=== PATIENT | male | born 1940 | race Caucasian/White ===

== ENCOUNTER 2017-12-25 00:13 | Observation (INO) | payer MEDICARE ==
--- NOTE | 2017-12-25 01:42 | ERPHSYRPT ---
- History of Present Illness Time Seen by Provider: 12/25/17 01:21 Source: patient, other (spouse) Exam Limitations: physical impairment Patient Subjective Stated Complaint: pt c/o pain and swelling in lt leg. states swelling started yesterday and has gotten worse today. Triage Nursing Assessment: pt alert and oriented, asnwers questions approp. pt transfer from wheelchair to stretcher with heavy assist of 2. respirations nonlabored. nonpitting edema to lt foot +3, nonpitting edema to lt knee. Physician History: Pt is on Hospice care at home, started c/o pain and swelling in his left knee and leg since yesterday morning. denies recent fall, injury. He had similar condition in his right knee and leg few months ago, when he was admitted and treated here. He denies severe chest pain, SOB, cough, nausea, fever or other complaints. His called his doctor, stronger pain medication was called in, but it " did not work either". Method of Injury: other (denies) Occurred: yesterday Quality: constant Severity of Pain-Max: severe Severity of Pain-Current: severe Lower Extremities Pain: leg: left, knee: left Modifying Factors: Improves With: nothing Associated Symptoms: unable to bear weight Allergies/Adverse Reactions: rivaroxaban [From Xarelto] Allergy (Verified 12/25/17 00:51) Home Medications: Budesonide/Formoterol Fumarate [Symbicort 160-4.5 Mcg Inhaler] 2 puffs IH DAILY 03/23/16 [History] Carvedilol 3.125 mg [Coreg 3.125 MG] 0.5 tab PO DAILY 03/23/16 [History] Furosemide 40 mg [Lasix 40 MG] 40 mg PO DAILY 03/23/16 [History] Simvastatin 40 mg [Zocor 40 mg] 20 mg PO HS 03/23/16 [History] Warfarin Sodium 2.5 mg [Coumadin 2.5 MG] 2.5 mg PO UD 03/24/16 [History] Warfarin Sodium 5 mg [Coumadin 5 MG] 5 mg PO UD 03/24/16 [History] Sacubitril/Valsartan [Entresto 24 mg-26 mg Tablet] 1 each PO DAILY 12/25/17 [ History] Spironolactone [Spironolactone] 12.5 mg PO DAILY 12/25/17 [History] Tamsulosin HCl 0.4 mg [Flomax 0.4 MG] 0.4 mg PO DAILY 12/25/17 [History] Hx Tetanus, Diphtheria Vaccination/Date Given: Yes Hx Influenza Vaccination/Date Given: No Hx Pneumococcal Vaccination/Date Given: No Immunizations Up to Date: Yes - Review of Systems Constitutional: No Symptoms Musculoskeletal: Arthralgias, Joint Pain All Other Systems: Unable due to condition - Past Medical History Pertinent Past Medical History: Yes Neurological History: No Pertinent History ENT History: No Pertinent History Cardiac History: Hypertension Respiratory History: CHF Endocrine Medical History: No Pertinent History Musculoskeletal History: Arthritis GI Medical History: No Pertinent History History: No Pertinent History Psycho-Social History: No Pertinent History Male Reproductive Disorders: No Pertinent History - Past Surgical History Past Surgical History: Yes Neuro Surgical History: No Pertinent History Cardiac: Internal Defibrillator, Pacemaker Respiratory: No Pertinent History Gastrointestinal: No Pertinent History Genitourinary: No Pertinent History Musculoskeletal: Other Male Surgical History: No Pertinent History Other Surgical History: Pacemaker, Right Knee Replacement, Right Shoulder - Social History Smoking Status: Former smoker How long have you smoked: 40+ yrs Exposure to second hand smoke: No Alcohol Use: Socially Drug Use: none Patient Lives Alone: No Significant Family History: heart disease, hypertension - Nursing Vital Signs Nursing Vital Signs: Initial Vital Signs Temperature 97.5 F 12/25/17 00:43 Pulse Rate 70 12/25/17 00:43 Respiratory Rate 20 12/25/17 00:43 Blood Pressure 88/53 12/25/17 00:43 O2 Sat by Pulse Oximetry 96 12/25/17 00:43 Pain Scale Pain Intensity 10 - Physical Exam General Appearance: no apparent distress Eyes, Ears, Nose, Throat Exam: normal ENT inspection Neck Exam: normal inspection, non-tender, supple Cardiovascular/Respiratory Exam: chest non-tender, normal breath sounds, regular rate/rhythm, heart sounds normal, no JVD Gastrointestinal/Abdominal Exam: non-tender, soft Knees Exam: left knee: no evidence of injury, pain, soft tissue tenderness, swelling (diffuse, no redness, or warmth) Foot Exam: left foot: swelling (2 + foot edema) Mental Status Exam: alert Skin Exam: normal color, warm, dry, No rash SpO2 Interpretation: normal SpO2: 96 Oxygen Delivery: Room Air - Course Nursing assessment & vital signs reviewed: Yes EKG Interpreted by Me: RATE (70/min), Other (paced) - Radiology Exams Chest X-ray Interpretation: Interpreted by me, Negative, Other (cardiomegaly, pacemaker, no acute changes) Knee X-ray Interpretation: Interpreted by me, Other (severe DJD) Ordered Tests: Active Orders 24 hr Category Date Time Status Technology Professional STAT Care 12/25/17 01:28 Active EKG-ER Only STAT Care 12/25/17 01:27 Active IV Insertion STAT Care 12/25/17 01:27 Active CHEST 1 VIEW (PORTABLE) Stat Exams 12/25/17 01:28 Taken KNEE (3 VIEWS) Stat Exams 12/25/17 01:53 Taken CBC W DIFF Stat Lab 12/25/17 02:20 Completed CMP Stat Lab 12/25/17 02:20 Completed Lactic Acid Stat Lab 12/25/17 02:25 Results NT PRO BNP Stat Lab 12/25/17 02:20 Completed PROTIME WITH INR Stat Lab 12/25/17 02:20 Completed PTT Stat Lab 12/25/17 02:20 Completed SED RATE [Erythrocyte Sedimentation Rate] Stat Lab 12/25/17 02:20 Completed Uric Acid Stat Lab 12/25/17 02:20 Completed Medication Summary Discontinued Medications Generic Name Dose Route Start Last Admin Trade Name Freq PRN Reason Stop Dose Admin Oxycodone/Acetaminophen 1 tab 12/25/17 03:10 12/25/17 03:17 Percocet Tablet 5/325mg PO 12/25/17 03:11 1 tab STAT STA Administration Oxycodone/Acetaminophen Confirm 12/25/17 03:13 Percocet Tablet 5/325mg Administered 12/25/17 03:14 Dose 1 tab .ROUTE .STK-MED ONE Lab/Rad Data: Laboratory Result Diagrams 12/25/17 02:20 12/25/17 02:20 Laboratory Results 12/25/17 12/25/17 12/25/17 Range/Units 02:25 02:20 02:20 WBC (4.0-10.5) K/mm3 RBC (4.1-5.6) M/mm3 Hgb (12.5-18.0) gm/dl Hct (42-50) % MCV (78-100) fl MCH (26-32) pg MCHC (32-36) g/dl RDW (11.5-14.0) % Plt Count (150-450) K/mm3 MPV (6-9.5) fl Gran % (36.0-66.0) % Eos # (Auto) (0-0.5) Absolute Lymphs (auto) (1.0-4.6) Absolute Monos (auto) (0.0-1.3) Lymphocytes % (24.0-44.0) % Monocytes % (0.0-12.0) % Eosinophils % (0.00-5.0) % Basophils % (0.0-0.4) % Absolute Granulocytes (1.4-6.9) Basophils # (0-0.4) ESR 57 H (0-15) mm/hr PT (8.83-12.87) SECONDS INR (0.8-3.0) APTT (24.1-36.1) SECONDS Sodium (137-145) mmol/L Potassium (3.5-5.1) mmol/L Chloride (98-107) mmol/L Carbon Dioxide (22-30) mmol/L Anion Gap (5-15) MEQ/L BUN (9-20) mg/dL Creatinine (0.66-1.25) mg/dL Estimated GFR ML/MIN Glucose (74-106) mg/dL Lactic Acid 2.3 H (0.4-2.0) Uric Acid 10.6 H (3.5-7.2) mg/dL Calcium (8.4-10.2) mg/dL Total Bilirubin (0.2-1.3) mg/dL AST (17-59) U/L ALT (0-50) U/L Alkaline Phosphatase (38-126) U/L NT-Pro-B Natriuret Pep (0-1800) pg/mL Serum Total Protein (6.3-8.2) g/dL Albumin (3.5-5.0) g/dL 12/25/17 12/25/17 12/25/17 Range/Units 02:20 02:20 02:20 WBC 12.9 H (4.0-10.5) K/mm3 RBC 4.63 (4.1-5.6) M/mm3 Hgb 13.8 (12.5-18.0) gm/dl Hct 42.2 (42-50) % MCV 91.1 (78-100) fl MCH 29.8 (26-32) pg MCHC 32.7 (32-36) g/dl RDW 14.8 H (11.5-14.0) % Plt Count 232 (150-450) K/mm3 MPV 11.2 H (6-9.5) fl Gran % 81.9 H (36.0-66.0) % Eos # (Auto) 0 (0-0.5) Absolute Lymphs (auto) 0.63 L (1.0-4.6) Absolute Monos (auto) 1.68 H (0.0-1.3) Lymphocytes % 4.9 L (24.0-44.0) % Monocytes % 13.0 H (0.0-12.0) % Eosinophils % 0.0 (0.00-5.0) % Basophils % 0.2 (0.0-0.4) % Absolute Granulocytes 10.57 H (1.4-6.9) Basophils # 0.03 (0-0.4) ESR (0-15) mm/hr PT 31.5 H (8.83-12.87) SECONDS INR 2.68 (0.8-3.0) APTT 47.7 H (24.1-36.1) SECONDS Sodium 135 L (137-145) mmol/L Potassium 4.2 (3.5-5.1) mmol/L Chloride 96 L (98-107) mmol/L Carbon Dioxide 24 (22-30) mmol/L Anion Gap 19.9 H (5-15) MEQ/L BUN 33 H (9-20) mg/dL Creatinine 1.43 H (0.66-1.25) mg/dL Estimated GFR 51.0 ML/MIN Glucose 116 H (74-106) mg/dL Lactic Acid (0.4-2.0) Uric Acid (3.5-7.2) mg/dL Calcium 9.6 (8.4-10.2) mg/dL Total Bilirubin 3.00 H (0.2-1.3) mg/dL AST 17 (17-59) U/L ALT 14 (0-50) U/L Alkaline Phosphatase 95 (38-126) U/L NT-Pro-B Natriuret Pep 68292 H (0-1800) pg/mL Serum Total Protein 8.1 (6.3-8.2) g/dL Albumin 4.3 (3.5-5.0) g/dL - Progress Progress: improved Progress Note: 12/25/17 03:46 Improved after Percocet, still very painful after moving, unable to ambulate due to pain. 12/25/17 03:[address] Cardenas, discussed our results and patient's condition, he agreed to admit him for further care and evaluation for Rehab. 12/25/17 03:49 Pt and his were informed, they agreed. Discussed with .: Ronald Will see patient in: hospital (full admit) Counseled pt/family regarding: lab results, diagnosis, rad results - Departure Time of Disposition: 03:47 Departure Disposition: In-patient Admission Clinical Impression: Gout Qualifiers: Gout site: knee Gout etiology: unspecified cause Chronicity: acute Laterality: left Qualified Code(s): M10.9 - Gout, unspecified Edema Qualifiers: Edema type: unspecified Qualified Code(s): R60.9 - Edema, unspecified Condition: Stable Critical Care Time: No Referrals: JEOVANNY ORTIZ [Primary Care Provider] -
[2017-12-25 02:25] LABS: BASOPHIL % 0.2 % (0.0-0.4); Basophil (Absolute #) 0.03 (0-0.4); Eosinophil (Absolute #) 0 (0-0.5); Granulocyte Absolute (ANC) 10.57 (1.4-6.9); Granulocytes % 81.9 % (36.0-66.0); Hematocrit 42.2 % (42-50); Hemoglobin 13.8 gm/dl (12.5-18.0); Lymphocyte (Absolute #) 0.63 (1.0-4.6); Lymphocytes % 4.9 % (24.0-44.0); Mean Cell Volume 91.1 fl (78-100); Mean Corpuscular Hemoglobin 29.8 pg (26-32); Mean Corpuscular Hgb Concent. 32.7 g/dl (32-36); Mean Platelet Volume 11.2 fl (6-9.5); Monocyte (Absolute #) 1.68 (0.0-1.3); Platelet Count 232 K/mm3 (150-450); Red Blood Count 4.63 M/mm3 (4.1-5.6); Red Cell Distribution Width 14.8 % (11.5-14.0); White Blood Count 12.9 K/mm3 (4.0-10.5)
[2017-12-25 02:35] LABS: Lactic Acid 2.3 (0.4-2.0)
[2017-12-25 02:46] LABS: INR 2.68 (0.8-3.0)
[2017-12-25 02:48] LABS: ALBUMIN 4.3 g/dL (3.5-5.0); ANION GAP 19.9 MEQ/L (5-15); Calcium 9.6 mg/dL (8.4-10.2); Creatinine 1 1.43 mg/dL (0.66-1.25); Potassium 4.2 mmol/L (3.5-5.1); Total Protein 8.1 g/dL (6.3-8.2)
[2017-12-25 02:49] LABS: PTT 47.7 SECONDS (24.1-36.1)
[2017-12-25] MEDS ORDERED: PERCOCET TABLET 5/325MG PO STA (03:10)
[2017-12-25] MEDS ORDERED: PERCOCET TABLET 5/325MG ONE (03:13)
[2017-12-25] MEDS ORDERED: Zofran 4 MG/2 ML VIAL IV PRN (03:49)
[2017-12-25] MEDS ORDERED: DUONEB 0.5-3 MG/3 ml Neb IH PRN (03:49)
[2017-12-25] MEDS ORDERED: DILAUDID 2 MG INJECTION IV PRN (03:49)
[2017-12-25] MEDS ORDERED: PERCOCET TABLET 5/325MG PO PRN (03:52)
[2017-12-25 03:59] LABS: Slide Review 1 YES
[2017-12-25] MEDS ORDERED: Advair Hfa 230/21 Mcg COMMON CANISTER IH SCH (07:00)
[2017-12-25] MEDS ORDERED: Celestone Soluspan 6MG/ML IM ONE (08:48)
--- NOTE | 2017-12-25 08:53 | PCM.HP ---
History of Present Illness - Chief Complaint Chief Complaint: Leg Swelling, Gout, Fluid Retention History of Present Illness: is a 77 year old male who presented to the ER last night after he fell and his was unable to get him up. He is on hospice apparently for endstage chf, he has had severe lower leg pain and difficulty ambulating due to swelling. He reports his breathing is stable. - Review of Systems Constitutional: No Fever, No Chills Respiratory: No Cough, No Short Of Breath Cardiac: Edema, No Chest Pain, No Syncope Abdominal/Gastrointestinal: No Abdominal Pain, No Nausea, No Vomiting, No Diarrhea All Other Systems: Reviewed and Negative Medications & Allergies Home Medications: Home Medication List Budesonide/Formoterol Fumarate [Symbicort 160-4.5 Mcg Inhaler] 2 puffs IH DAILY 03/23/16 [History Confirmed 03/23/16] Carvedilol 3.125 mg [Coreg 3.125 MG] 0.5 tab PO DAILY 03/23/16 [History Confirmed 12/25/17] Furosemide 40 mg [Lasix 40 MG] 40 mg PO DAILY 03/23/16 [History Confirmed 12/25/17] Simvastatin 40 mg [Zocor 40 mg] 20 mg PO HS 03/23/16 [History Confirmed 12/25/17 ] Warfarin Sodium 2.5 mg [Coumadin 2.5 MG] 2.5 mg PO UD 03/24/16 [History Confirmed 12/25/17] Warfarin Sodium 5 mg [Coumadin 5 MG] 5 mg PO UD 03/24/16 [History Confirmed 12/25/17] Sacubitril/Valsartan [Entresto 24 mg-26 mg Tablet] 1 each PO DAILY 12/25/17 [ History Confirmed 12/25/17] Spironolactone [Spironolactone] 12.5 mg PO DAILY 12/25/17 [History Confirmed ] Tamsulosin HCl 0.4 mg [Flomax 0.4 MG] 0.4 mg PO DAILY 12/25/17 [History Confirmed 12/25/17] Allergies/Adverse Reactions: Allergies Allergy/AdvReac Type Severity Reaction Status Date / Time rivaroxaban [From Xarelto] Allergy Verified 12/25/17 00:51 - Past Medical History Past Medical History: Yes Neurological History: No Pertinent History ENT History: No Pertinent History Cardiac History: Hypertension Respiratory History: CHF Endocrine Medical History: No Pertinent History Musculoskelatal History: Arthritis GI Medical History: No Pertinent History History: No Pertinent History Pyscho-Social History: No Pertinent History Male Reproductive Disorders: No Pertinent History Comment: Rotator cuff currently injured - Past Surgical History Past Surgical History: Yes Neuro Surgical History: No Pertinent History Cardiac History: Internal Defibrillator, Pacemaker Respiratory Surgery: No Pertinent History GI Surgical History: No Pertinent History Genitourinary Surgical Hx: No Pertinent History Musculskeletal Surgical Hx: Other Male Surgical History: No Pertinent History Other Surgical History: Pacemaker, Right Knee Replacement, Right Shoulder - Social History Smoking Status: Former smoker How long have you smoked: 40+ yrs Exposure to second hand smoke: No Alcohol: None Drug Use: none Significant Family History: heart disease, hypertension - Physical Exam Vital Signs: Vital Signs - 24 hr Temp Pulse Resp BP Pulse Ox 12/25/17 08:00 98.6 F 70 18 96/51 97 12/25/17 05:36 70 18 95 12/25/17 04:53 97.9 F 70 18 92/56 93 L 12/25/17 04:05 87 16 97/56 97 12/25/17 03:49 96 12/25/17 03:40 71 12/25/17 02:38 70 18 95/57 97 12/25/17 00:43 97.5 F 70 20 88/53 96 Oxygen-Last 24 hours Oxygen Flowrate (L/min)-RT 2 General Appearance: no apparent distress, alert Respiratory Exam: crackles/rales Cardiovascular Exam: regular rate/rhythm, normal heart sounds, normal peripheral pulses Gastrointestinal/Abdomen Exam: soft, normal bowel sounds, No tenderness, No mass Extremity Exam: pedal edema, swelling Results - Labs Lab/Micro Results: Lab Results-Last 24 Hours 12/25/17 Range/Units 05:20 Lactic Acid 1.0 (0.4-2.0) - Other Procedures and Tests Respiratory Therapy 12/25/17 05:36 Oxygen NASAL CANNULA 2 lpm Respiratory Nebulizer UD 12/25/17 07:00 Respiratory MDI BID Assessment/Plan (1) Acute on chronic systolic CHF (congestive heart failure) Current Visit: Yes Status: Acute Assessment & Plan: IV lasix ordered, have contaced hospice group. may need to consider ECF placement Code(s): I50.23 - ACUTE ON CHRONIC SYSTOLIC (CONGESTIVE) HEART FAILURE (2) Gout Current Visit: Yes Status: Acute Qualifiers: Gout site: knee Gout etiology: unspecified cause Chronicity: acute Laterality: left Qualified Code(s): M10.9 - Gout, unspecified Assessment & Plan: IM celestone ordered x 1 Code(s): M10.9 - GOUT, UNSPECIFIED (3) Chronic a-fib Current Visit: No Status: Chronic Code(s): I48.2 - CHRONIC ATRIAL FIBRILLATION (4) Chronic hypoxemic respiratory failure Current Visit: No Status: Chronic (5) Type 2 diabetes mellitus Current Visit: No Status: Chronic
[2017-12-25] MEDS ORDERED: Lasix 40 MG/4 ML IV SCH (09:00)
--- NOTE | 2017-12-25 09:10 | XRAY ---
Indication: Pain and swelling. No known injury. Comparison: March 23, 2016. 3 views of the left knee again demonstrates advanced tricompartmental degenerative changes with surrounding heterotopic ossifications, small nonspecific suprapatellar effusion, and scattered vascular calcifications. No new/acute bony, articular, or soft tissue abnormalities.
--- NOTE | 2017-12-25 09:10 | XRAY ---
Indication: Short of breath and cough. Comparison: March 23, 2016. Portable chest remains clear. Heart remains enlarged again with left-sided AICD. Vascularity normal. 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 Bony thorax intact again with mild osteopenia and degenerative changes. Impression: Stable nonacute chest with chronic features.
[2017-12-25] MEDS ORDERED: Flomax 0.4 MG PO SCH (10:00)
[2017-12-25] MEDS ORDERED: NON-FORMULARY ITEM (Sacubitril/Valsartan [Entresto 24 Mg-26 Mg Tablet] 1 EACH) PO SCH (10:00)
[2017-12-25] MEDS ORDERED: ENTRESTO 49 MG-51 MG TABLET PO SCH (10:00)
[2017-12-25] MEDS ORDERED: Coreg 3.125 MG PO SCH (10:00)
[2017-12-25] MEDS ORDERED: Aldactone 25 MG PO SCH (10:00)
--- NOTE | 2017-12-25 13:53 | XRAY ---
Indication: Left arm left leg numbness. Multiple contiguous axial images obtained through the head without contrast. Comparison: None Age-appropriate global atrophy and mild periventricular degenerative micro-ischemia bilaterally. No acute intracranial hemorrhage, abnormal extra-axial fluid collection, or mass effect. Fourth ventricle is midline without hydrocephalus. Bony calvarium intact. Visualized paranasal sinuses and mastoid air cells are clear. Impression: Nonacute senile brain. CTDI 68.32
--- NOTE | 2017-12-25 16:23 | PCM.DCORD ---
- Discharge Disposition: DC TO [facility] Condition: Stable Prescriptions: New Oxycodone/APAP 5 mg/325 mg [Percocet Tablet 5/325Mg] 1 tab PO Q4H PRN PRN #120 tablet MDD 6 PRN Reason: Pain Continue Furosemide 40 mg [Lasix 40 MG] 40 mg PO DAILY Budesonide/Formoterol Fumarate [Symbicort 160-4.5 Mcg Inhaler] 2 puffs IH DAILY Carvedilol 3.125 mg [Coreg 3.125 MG] 0.5 tab PO DAILY Simvastatin 40 mg [Zocor 40 mg] 20 mg PO HS Warfarin Sodium 2.5 mg [Coumadin 2.5 MG] 2.5 mg PO UD Warfarin Sodium 5 mg [Coumadin 5 MG] 5 mg PO UD Tamsulosin HCl 0.4 mg [Flomax 0.4 MG] 0.4 mg PO DAILY Spironolactone 12.5 mg PO DAILY Sacubitril/Valsartan [Entresto 24 mg-26 mg Tablet] 1 each PO DAILY Additional Instructions: [facility] ORDERS: PT/OT EVAL AND TREAT SEE ATTACHED MED LIST FOR CURRENT MED ORDERS HEART HEALTHY DIET O2 AT 2L PRN TO KEEP SPO2 > 92% Forms: Transfer Record [facility]
[2017-12-25 16:33] VITALS: BP 88/52; PULSE 71; O2SAT 94
[2017-12-25] MEDS ORDERED: Coumadin 5 MG PO SCH (18:00)
[2017-12-26] MEDS ORDERED: Coumadin 2.5 MG PO SCH (18:00)
== END 2017-12-25 17:05 ==
LOC: ED 00:13 → MED SURG 04:25 → INTOOBSV 04:25 → OBSVTOIN 04:25
PROVIDERS: ADMIT Family Medicine; ATTEND Family Medicine
DX: I50.23 Acute on chronic systolic (congestive) heart failure (principal); M10.9 Gout, unspecified; I48.2 Chronic atrial fibrillation; J96.11 Chronic respiratory failure with hypoxia; E11.9 Type 2 diabetes mellitus without complications; I10 Essential (primary) hypertension; M19.90 Unspecified osteoarthritis, unspecified site; Z95.810 Presence of automatic (implantable) cardiac defibrillator; Z87.891 Personal history of nicotine dependence; Z79.01 Long term (current) use of anticoagulants; Z79.899 Other long term (current) drug therapy
CPT/HCPCS: 36000; 36415; 70450; 71045; 73562; 80053; 83605; 83880; 84550; 85025; 85610; 85652; 85730; 93005; 93041; 93268; 94640; 94760; 99284; 99285; J0702; J1940; A9270-GY; G0378

== ENCOUNTER 2018-02-11 19:39 | Observation (INO) | payer MEDICARE ==
[2018-02-11] MEDS ORDERED: Zofran 4 MG/2 ML VIAL IV ONE (20:03)
[2018-02-11] MEDS ORDERED: MORPHINE SULFATE 4 MG INJ IV ONE (20:03)
--- NOTE | 2018-02-11 20:10 | ERPHSYRPT ---
- History of Present Illness Time Seen by Provider: 02/11/18 20:00 Source: patient Exam Limitations: no limitations Patient Subjective Stated Complaint: Pt arrives to ER via EMS from home with c/ o right wrist/hand pain, swelling, erythema and hot to touch started yesterday. Denies injury. Also denies Reumatoid Arthritis. Was told may have hx of Gout but is unsure. Wrist is painful to touch. Pt was d/c [facility] on Thursday for left knee problems. Cough since September worse with "off white" sputum production. Triage Nursing Assessment: see above Physician History: 77 y/o male brought in by ambulance for right wrist swelling, pain, redness and warmth to touch that started today. Pt has a remote history of gout. Pt describes the pain as sharp, constant, 10/10 and not relieved by hydrocodone. Pt denies any fever or chills. Occurred: this morning Method of Injury: unknown Quality: constant Severity of Pain-Max: severe Severity of Pain-Current: severe Extremities Pain Location: wrist: right Modifying Factors: Improves With: movement Associated Symptoms: none Allergies/Adverse Reactions: rivaroxaban [From Xarelto] Allergy (Verified 02/11/18 19:53) Home Medications: Budesonide/Formoterol Fumarate [Symbicort 160-4.5 Mcg Inhaler] 2 puffs IH DAILY 03/23/16 [History] Carvedilol 3.125 mg [Coreg 3.125 MG] 0.5 tab PO DAILY 03/23/16 [History] Furosemide 40 mg [Lasix 40 MG] 40 mg PO DAILY 03/23/16 [History] Simvastatin 40 mg [Zocor 40 mg] 20 mg PO HS 03/23/16 [History] Warfarin Sodium 2.5 mg [Coumadin 2.5 MG] 2.5 mg PO UD 03/24/16 [History] Warfarin Sodium 5 mg [Coumadin 5 MG] 5 mg PO UD 03/24/16 [History] Sacubitril/Valsartan [Entresto 24 mg-26 mg Tablet] 1 each PO DAILY 12/25/17 [ History] Spironolactone 12.5 mg PO DAILY 12/25/17 [History] Tamsulosin HCl 0.4 mg [Flomax 0.4 MG] 0.4 mg PO DAILY 12/25/17 [History] Albuterol 2.5 mg/3 ml Neb [Proventil 2.5 mg/3 ml Neb] 2.5 mg IH 02/11/18 [ History] Hydrocodone Bit/Acetaminophen [Hydrocodon-Acetaminoph 7.5-325] 1 each PO Q4- 6HPRN PRN 02/11/18 [History] Hx Tetanus, Diphtheria Vaccination/Date Given: Yes Hx Influenza Vaccination/Date Given: No Hx Pneumococcal Vaccination/Date Given: No - Review of Systems Constitutional: No Fever, No Chills Eyes: No Symptoms Ears, Nose, & Throat: No Symptoms Respiratory: No Cough, No Dyspnea Cardiac: No Chest Pain, No Edema, No Syncope Abdominal/Gastrointestinal: No Abdominal Pain, No Nausea, No Vomiting, No Diarrhea Genitourinary Symptoms: No Dysuria Musculoskeletal: Arthralgias, Joint Redness, Joint Pain, Joint Swelling, No Back Pain, No Neck Pain Skin: No Rash Neurological: No Dizziness, No Focal Weakness, No Sensory Changes Psychological: No Symptoms Endocrine: No Symptoms All Other Systems: Reviewed and Negative - Past Medical History Pertinent Past Medical History: Yes Neurological History: No Pertinent History ENT History: No Pertinent History Cardiac History: Hypertension Respiratory History: CHF Endocrine Medical History: No Pertinent History Musculoskeletal History: Arthritis GI Medical History: No Pertinent History History: No Pertinent History Psycho-Social History: No Pertinent History Male Reproductive Disorders: No Pertinent History Other Medical History: Rotator cuff currently injured - Past Surgical History Past Surgical History: Yes Neuro Surgical History: No Pertinent History Cardiac: Internal Defibrillator, Pacemaker Respiratory: No Pertinent History Gastrointestinal: No Pertinent History Genitourinary: No Pertinent History Musculoskeletal: Other Male Surgical History: No Pertinent History Other Surgical History: Pacemaker, Right Knee Replacement, Right Shoulder - Social History Smoking Status: Former smoker How long have you smoked: 40+ yrs Exposure to second hand smoke: Yes Alcohol Use: Socially Drug Use: none Patient Lives Alone: No Significant Family History: heart disease, hypertension - Nursing Vital Signs Nursing Vital Signs: Initial Vital Signs Temperature 98.8 F 02/11/18 19:42 Pulse Rate 76 02/11/18 19:42 Respiratory Rate 22 02/11/18 19:42 Blood Pressure 93/59 02/11/18 19:42 O2 Sat by Pulse Oximetry 98 02/11/18 19:42 Pain Scale Pain Intensity 10 - Physical Exam General Appearance: mild distress, alert Eyes, Ears, Nose, Throat Exam: moist mucous membranes Neck Exam: non-tender, supple Cardiovascular/Respiratory Exam: chest non-tender, normal breath sounds, regular rate/rhythm, no respiratory distress Abdominal Exam: non-tender, No guarding Back Exam: normal inspection, No vertebral tenderness Elbow/Forearm Exam: normal inspection, non-tender, no evidence of injury Wrist Exam: bone tenderness, ecchymosis, limited ROM, soft tissue tenderness, swelling Hand Exam: normal inspection, non-tender, no evidence of injury Neuro/Tendon Exam: normal sensation, normal motor functions Mental Status Exam: alert, oriented x 3, cooperative Skin Exam: normal color, warm, dry SpO2: 98 Oxygen Delivery: Room Air - Course Nursing assessment & vital signs reviewed: Yes Ordered Tests: Active Orders 24 hr Category Date Time Status CHEST 1 VIEW (PORTABLE) Stat Exams 02/11/18 20:30 Taken WRIST (MIN 3 VIEWS) Stat Exams 02/11/18 20:28 Taken BLOOD CULTURE Stat Lab 02/11/18 21:00 Received CBC W DIFF Stat Lab 02/11/18 21:00 Completed CK-Creatinine Phosphokinase Stat Lab 02/11/18 21:00 Completed CMP Stat Lab 02/11/18 21:00 Completed CULTURE,SPUTUM Stat Lab 02/11/18 20:02 Uncollected Erythrocyte Sedimentation Rate Stat Lab 02/11/18 21:00 Completed NT PRO BNP Stat Lab 02/11/18 21:00 Completed PROTIME WITH INR Stat Lab 02/11/18 21:00 Completed PTT Stat Lab 02/11/18 21:00 Completed Uric Acid Stat Lab 02/11/18 21:00 Completed Medication Summary Discontinued Medications Generic Name Dose Route Start Last Admin Trade Name Freq PRN Reason Stop Dose Admin Clindamycin HCl/Dextrose 600 mg in 50 mls @ 100 mls/hr 02/11/18 21:59 22:16 Clindamycin-D5w 600 Mg/50 Ml IV 02/11/18 22:28 100 mls/hr STAT STA 100 mls/hr Administration Sodium Chloride 500 mls @ 500 mls/hr 02/11/18 22:00 02/11/18 22:17 Sodium Chloride 0.9% 500 Ml IV 02/11/18 22:59 500 mls/hr .Q1H ONE Administration Sodium Chloride Confirm 02/11/18 22:08 Sodium Chloride 0.9% 500 Ml Administered 02/11/18 22:09 Dose 500 mls @ ud IV .STK-MED ONE Clindamycin HCl/Dextrose Confirm 02/11/18 22:08 Clindamycin-D5w 600 Mg/50 Ml Administered 02/11/18 22:09 Dose 600 mg in 50 mls @ ud IV .STK-MED ONE Morphine Sulfate 4 mg 02/11/18 20:03 02/11/18 20:57 Morphine Sulfate 4 Mg Inj IV 02/11/18 20:04 4 mg STAT ONE Administration Morphine Sulfate Confirm 02/11/18 20:53 Morphine Sulfate 4 Mg Inj Administered 02/11/18 20:54 Dose 4 mg .ROUTE .STK-MED ONE Ondansetron HCl 4 mg 02/11/18 20:03 02/11/18 20:57 Zofran 4 Mg/2 Ml Vial IV 02/11/18 20:04 4 mg STAT ONE Administration Ondansetron HCl Confirm 02/11/18 20:53 Zofran 4 Mg/2 Ml Vial Administered 02/11/18 20:54 Dose 4 mg .ROUTE .STK-MED ONE Lab/Rad Data: Laboratory Result Diagrams 02/11/18 21:00 02/11/18 21:00 Laboratory Results 02/11/18 02/11/18 02/11/18 Range/Units 21:00 21:00 21:00 WBC 11.7 H (4.0-10.5) K/mm3 RBC 3.79 L (4.1-5.6) M/mm3 Hgb 11.3 L (12.5-18.0) gm/dl Hct 35.0 L (42-50) % MCV 92.3 (78-100) fl MCH 29.8 (26-32) pg MCHC 32.3 (32-36) g/dl RDW 15.8 H (11.5-14.0) % Plt Count 256 (150-450) K/mm3 MPV 10.9 H (6-9.5) fl Gran % 78.6 H (36.0-66.0) % Eos # (Auto) 0.01 (0-0.5) Absolute Lymphs (auto) 1.13 (1.0-4.6) Absolute Monos (auto) 1.35 H (0.0-1.3) Lymphocytes % 9.6 L (24.0-44.0) % Monocytes % 11.5 (0.0-12.0) % Eosinophils % 0.1 (0.00-5.0) % Basophils % 0.2 (0.0-0.4) % Absolute Granulocytes 9.22 H (1.4-6.9) Basophils # 0.02 (0-0.4) ESR 79 H (0-15) mm/hr PT 28.7 H (8.83-12.87) SECONDS INR 2.45 (0.8-3.0) APTT 42.6 H (24.1-36.1) SECONDS Sodium 136 L (137-145) mmol/L Potassium 3.7 (3.5-5.1) mmol/L Chloride 99 (98-107) mmol/L Carbon Dioxide 27 (22-30) mmol/L Anion Gap 13.6 (5-15) MEQ/L BUN 31 H (9-20) mg/dL Creatinine 1.33 H (0.66-1.25) mg/dL Estimated GFR 55.4 ML/MIN Glucose 110 H (74-106) mg/dL Uric Acid 8.1 H (3.5-7.2) mg/dL Calcium 9.2 (8.4-10.2) mg/dL Total Bilirubin 2.30 H (0.2-1.3) mg/dL AST 12 L (17-59) U/L ALT 12 (0-50) U/L Alkaline Phosphatase 87 (38-126) U/L Creatine Kinase 99 (55-170) U/L NT-Pro-B Natriuret Pep 89696 H (0-1800) pg/mL Serum Total Protein 7.3 (6.3-8.2) g/dL Albumin 4.0 (3.5-5.0) g/dL - Progress Progress: improved Progress Note: 02/11/18 22:34 Repeat BP is 96/60 after 500 NS fluids. Pt has a mild leukocytosis at 11,000. The x ray of the wrist does not show any acute findings. The patient will be sent home on clindamycin and percocet for cellulitis. 02/11/18 23:11 After further evaluation, patient is unable to walk and can only stand with assistance. Pt has been admitted to Dr Herrera for cellulitis and weakness. - Departure Time of Disposition: 22:36 Departure Disposition: In-patient Admission Clinical Impression: Weakness Cellulitis Qualifiers: Site of cellulitis: extremity Site of cellulitis of extremity: upper extremity Laterality: right Qualified Code(s): L03.113 - Cellulitis of right upper limb Condition: Fair Critical Care Time: Yes Critical Care Time(excluding separately billable procedures): 30-74 minutes Referrals: JEOVANNY ORTIZ [Primary Care Provider] - Prescriptions: Clindamycin HCl 300 mg PO TID #30 capsule Oxycodone HCl/Acetaminophen [Percocet 5-325 mg Tablet] 1 each PO QID PRN #16 tablet MDD 4 PRN Reason: Pain
[2018-02-11] MEDS ORDERED: Zofran 4 MG/2 ML VIAL ONE (20:53)
[2018-02-11] MEDS ORDERED: MORPHINE SULFATE 4 MG INJ ONE (20:53)
[2018-02-11 21:15] LABS: BASOPHIL % 0.2 % (0.0-0.4); Basophil (Absolute #) 0.02 (0-0.4); Eosinophil % 0.1 % (0.00-5.0); Eosinophil (Absolute #) 0.01 (0-0.5); Granulocyte Absolute (ANC) 9.22 (1.4-6.9); Granulocytes % 78.6 % (36.0-66.0); Hemoglobin 11.3 gm/dl (12.5-18.0); Lymphocyte (Absolute #) 1.13 (1.0-4.6); Lymphocytes % 9.6 % (24.0-44.0); Mean Cell Volume 92.3 fl (78-100); Mean Corpuscular Hemoglobin 29.8 pg (26-32); Mean Corpuscular Hgb Concent. 32.3 g/dl (32-36); Mean Platelet Volume 10.9 fl (6-9.5); Monocyte (Absolute #) 1.35 (0.0-1.3); Monocytes % 11.5 % (0.0-12.0); Platelet Count 256 K/mm3 (150-450); Red Blood Count 3.79 M/mm3 (4.1-5.6); Red Cell Distribution Width 15.8 % (11.5-14.0); White Blood Count 11.7 K/mm3 (4.0-10.5)
[2018-02-11 21:35] LABS: ANION GAP 13.6 MEQ/L (5-15); BILIRUBIN,TOTAL 2.3 mg/dL (0.2-1.3); Calcium 9.2 mg/dL (8.4-10.2); Creatinine 1 1.33 mg/dL (0.66-1.25); Potassium 3.7 mmol/L (3.5-5.1); Total Protein 7.3 g/dL (6.3-8.2); Uric Acid 8.1 mg/dL (3.5-7.2)
[2018-02-11 21:36] LABS: Erythrocyte Sedimentation Rate 79 mm/hr (0-15)
[2018-02-11 21:40] LABS: INR 2.45 (0.8-3.0)
[2018-02-11 21:43] LABS: PTT 42.6 SECONDS (24.1-36.1)
[2018-02-11] MEDS ORDERED: CLINDAMYCIN-D5W 600 MG/50 ML*** 600 MG/50 ML BAG IV STA (21:59)
[2018-02-11] MEDS ORDERED: Sodium Chloride 0.9% 500 ML 500 ML IV ONE ×2 (22:00→22:08)
[2018-02-11] MEDS ORDERED: CLINDAMYCIN-D5W 600 MG/50 ML*** 600 MG/50 ML BAG IV ONE (22:08)
[2018-02-11] MEDS ORDERED: MORPHINE SULFATE 4 MG INJ IV PRN (23:15)
[2018-02-11] MEDS ORDERED: Sodium Chloride 0.9% 1000 ML 1,000 ML IV SCH (23:15)
[2018-02-11] MEDS ORDERED: Zofran 4 MG/2 ML VIAL IV PRN (23:15)
[2018-02-12] MEDS ORDERED: PROVENTIL 2.5 MG/3 ML NEB IH PRN (03:29)
[2018-02-12] MEDS: CLINDAMYCIN-D5W 600 MG/50 ML*** 600 MG/50 ML BAG IV SCH ×3 (05:31→23:24)
[2018-02-12 06:20] LABS: BASOPHIL % 0.2 % (0.0-0.4); Basophil (Absolute #) 0.02 (0-0.4); Eosinophil % 0.1 % (0.00-5.0); Eosinophil (Absolute #) 0.01 (0-0.5); Granulocyte Absolute (ANC) 6.43 (1.4-6.9); Granulocytes % 75.7 % (36.0-66.0); Hematocrit 33.3 % (42-50); Hemoglobin 10.5 gm/dl (12.5-18.0); Lymphocyte (Absolute #) 1.07 (1.0-4.6); Lymphocytes % 12.6 % (24.0-44.0); Mean Cell Volume 93.5 fl (78-100); Mean Corpuscular Hgb Concent. 31.5 g/dl (32-36); Mean Platelet Volume 11.1 fl (6-9.5); Monocyte (Absolute #) 0.97 (0.0-1.3); Monocytes % 11.4 % (0.0-12.0); Platelet Count 247 K/mm3 (150-450); Red Blood Count 3.56 M/mm3 (4.1-5.6); Red Cell Distribution Width 15.8 % (11.5-14.0); White Blood Count 8.5 K/mm3 (4.0-10.5)
[2018-02-12 06:27] LABS: ANION GAP 11.1 MEQ/L (5-15); BLOOD UREA NITROGEN 31 mg/dL (9-20); CHLORIDE 101 mmol/L (98-107); Calcium 8.7 mg/dL (8.4-10.2); Carbon Dioxide 27 mmol/L (22-30); Creatinine 1 1.24 mg/dL (0.66-1.25); Glucose 101 mg/dL (74-106); Potassium 3.9 mmol/L (3.5-5.1); SODIUM 135 mmol/L (137-145)
[2018-02-12 06:32] LABS: Mean Corpuscular Hemoglobin 29.4 pg (26-32)
--- NOTE | 2018-02-12 08:07 | PCM.HP ---
History of Present Illness - Chief Complaint Chief Complaint: cellulitis, weakness Date: 02/12/18 History of Present Illness: is a 77 year old male. who was released from [facility] about 1 and 1/2 weeks ago who says he was doing great when he got home but 3 days ago started having pain in his right leg and couldn't walk and had to have a neighbor help him get to bed. He then 2 days ago states his right hand became very painful and "bubbled up" and was swollen red and he couldn't touch it use it or move it. He couldn't take the pain last night so he called the ambulance. He also states he had been coughing up white phlegm persistently with wheezing and shortness of breath but this has resolved today. He denied any fever, chills, nausea or vomiting or diarrhea. He says he was taking his medications but he does not know what medications he takes. He says he is so weak he just can't do it. He states the swelling is better in the hand this morning and the pain is improved but still severe. - Review of Systems Constitutional: No Fever, No Chills Eyes: No Symptoms Ears, Nose, & Throat: No Symptoms Respiratory: Cough, Short Of Breath, Wheezing Cardiac: No Chest Pain, No Edema, No Syncope Abdominal/Gastrointestinal: No Abdominal Pain, No Nausea, No Vomiting, No Diarrhea Genitourinary Symptoms: No Dysuria Musculoskeletal: No Back Pain, No Neck Pain Neurological: Gait Changes, No Dizziness, No Focal Weakness, No Sensory Changes Psychological: No Symptoms Endocrine: No Symptoms Hematologic/Lymphatic: No Symptoms Immunological/Allergic: No Symptoms Medications & Allergies Home Medications: Home Medication List Budesonide/Formoterol Fumarate [Symbicort 160-4.5 Mcg Inhaler] 2 puffs IH DAILY 03/23/16 [History Confirmed 03/23/16] Carvedilol 3.125 mg [Coreg 3.125 MG] 0.5 tab PO DAILY 03/23/16 [History Confirmed 12/25/17] Furosemide 40 mg [Lasix 40 MG] 40 mg PO DAILY 03/23/16 [History Confirmed 12/25/17] Simvastatin 40 mg [Zocor 40 mg] 20 mg PO HS 03/23/16 [History Confirmed 12/25/17 ] Warfarin Sodium 2.5 mg [Coumadin 2.5 MG] 2.5 mg PO UD 03/24/16 [History Confirmed 12/25/17] Warfarin Sodium 5 mg [Coumadin 5 MG] 5 mg PO UD 03/24/16 [History Confirmed 12/25/17] Sacubitril/Valsartan [Entresto 24 mg-26 mg Tablet] 1 each PO DAILY 12/25/17 [ History Confirmed 12/25/17] Spironolactone 12.5 mg PO DAILY 12/25/17 [History Confirmed 12/25/17] Tamsulosin HCl 0.4 mg [Flomax 0.4 MG] 0.4 mg PO DAILY 12/25/17 [History Confirmed 12/25/17] Albuterol 2.5 mg/3 ml Neb [Proventil 2.5 mg/3 ml Neb] 2.5 mg IH 02/11/18 [ History] Clindamycin HCl 300 mg PO TID #30 capsule 02/11/18 [Rx] Hydrocodone Bit/Acetaminophen [Hydrocodon-Acetaminoph 7.5-325] 1 each PO Q4- 6HPRN PRN 02/11/18 [History Confirmed 02/11/18] Oxycodone HCl/Acetaminophen [Percocet 5-325 mg Tablet] 1 each PO QID PRN #16 tablet MDD 4 02/11/18 [Rx] Allergies/Adverse Reactions: Allergies Allergy/AdvReac Type Severity Reaction Status Date / Time rivaroxaban [From Xarelto] Allergy Verified 02/11/18 19:53 - Past Medical History Past Medical History: Yes Neurological History: No Pertinent History ENT History: No Pertinent History Cardiac History: Hypertension Respiratory History: CHF Endocrine Medical History: No Pertinent History Musculoskelatal History: Arthritis GI Medical History: No Pertinent History History: No Pertinent History Pyscho-Social History: No Pertinent History Male Reproductive Disorders: No Pertinent History Comment: Rotator cuff currently injured - Past Surgical History Past Surgical History: Yes Neuro Surgical History: No Pertinent History Cardiac History: Internal Defibrillator, Pacemaker Respiratory Surgery: No Pertinent History GI Surgical History: No Pertinent History Genitourinary Surgical Hx: No Pertinent History Musculskeletal Surgical Hx: Other Male Surgical History: No Pertinent History Other Surgical History: Pacemaker, Right Knee Replacement, Right Shoulder - Social History Smoking Status: Former smoker How long have you smoked: 40+ yrs Exposure to second hand smoke: Yes Alcohol: None Drug Use: none Significant Family History: heart disease, hypertension - Physical Exam Vital Signs: Vital Signs - 24 hr Temp Pulse Resp BP Pulse Ox 02/12/18 07:38 97.4 F 70 22 94/59 96 02/12/18 04:00 98.5 F 69 18 101/58 98 02/12/18 00:57 98.6 F 69 18 90/54 97 02/11/18 23:52 72 18 100/65 100 02/11/18 23:30 71 18 94/62 99 02/11/18 23:12 98 02/11/18 22:58 70 18 89/58 18 L 02/11/18 22:30 70 18 89/62 98 02/11/18 22:00 70 18 96/62 98 02/11/18 21:30 70 18 87/57 99 02/11/18 21:13 70 18 91/89 98 02/11/18 21:00 71 18 89/56 99 02/11/18 19:42 98.8 F 76 22 93/59 98 Oxygen-Last 24 hours O2 Percentage 2 Liters = 28% O2 Percentage 2 Liters = 28% O2 Percentage 2 Liters = 28% O2 Percentage 2 Liters = 28% O2 Percentage 2 Liters = 28% O2 Percentage 2 Liters = 28% O2 Percentage 2 Liters = 28% O2 Percentage 2 Liters = 28% O2 Percentage 2 Liters = 28% O2 Percentage 2 Liters = 28% O2 Percentage 2 Liters = 28% General Appearance: no apparent distress, alert, obese Neurologic Exam: alert, oriented x 3, cooperative, sensation nml, No motor deficits Eye Exam: PERRL/EOMI, eyes nml inspection, No scleral icterus, No pale conjunctivae Ears, Nose, Throat Exam: normal ENT inspection, pharynx normal, moist mucous membranes Neck Exam: normal inspection, non-tender, supple, full range of motion Respiratory Exam: normal breath sounds, lungs clear, No respiratory distress Cardiovascular Exam: regular rate/rhythm, normal heart sounds, normal peripheral pulses Gastrointestinal/Abdomen Exam: soft, normal bowel sounds, No tenderness, No mass Back Exam: normal inspection, No vertebral tenderness Extremity Exam: swelling (2+ donya LE edema right hand with trace edema minimal warmth and minimal redness) Skin Exam: warm, dry, other (minimal warmth and redness right hand), No rash Lymphatic Exam: No adenopathy Results - Labs Lab/Micro Results: Lab Results-Last 24 Hours 02/11/18 02/11/18 02/11/18 Range/Units 21:00 21:00 21:00 WBC 11.7 H (4.0-10.5) K/mm3 RBC 3.79 L (4.1-5.6) M/mm3 Hgb 11.3 L (12.5-18.0) gm/dl Hct 35.0 L (42-50) % MCV 92.3 (78-100) fl MCH 29.8 (26-32) pg MCHC 32.3 (32-36) g/dl RDW 15.8 H (11.5-14.0) % Plt Count 256 (150-450) K/mm3 MPV 10.9 H (6-9.5) fl Gran % 78.6 H (36.0-66.0) % Eos # (Auto) 0.01 (0-0.5) Absolute Lymphs (auto) 1.13 (1.0-4.6) Absolute Monos (auto) 1.35 H (0.0-1.3) Lymphocytes % 9.6 L (24.0-44.0) % Monocytes % 11.5 (0.0-12.0) % Eosinophils % 0.1 (0.00-5.0) % Basophils % 0.2 (0.0-0.4) % Absolute Granulocytes 9.22 H (1.4-6.9) Basophils # 0.02 (0-0.4) ESR 79 H (0-15) mm/hr PT 28.7 H (8.83-12.87) SECONDS INR 2.45 (0.8-3.0) APTT 42.6 H (24.1-36.1) SECONDS Sodium 136 L (137-145) mmol/L Potassium 3.7 (3.5-5.1) mmol/L Chloride 99 (98-107) mmol/L Carbon Dioxide 27 (22-30) mmol/L Anion Gap 13.6 (5-15) MEQ/L BUN 31 H (9-20) mg/dL Creatinine 1.33 H (0.66-1.25) mg/dL Estimated GFR 55.4 ML/MIN Glucose 110 H (74-106) mg/dL Uric Acid 8.1 H (3.5-7.2) mg/dL Calcium 9.2 (8.4-10.2) mg/dL Total Bilirubin 2.30 H (0.2-1.3) mg/dL AST 12 L (17-59) U/L ALT 12 (0-50) U/L Alkaline Phosphatase 87 (38-126) U/L Creatine Kinase 99 (55-170) U/L NT-Pro-B Natriuret Pep 64224 H (0-1800) pg/mL Serum Total Protein 7.3 (6.3-8.2) g/dL Albumin 4.0 (3.5-5.0) g/dL 02/12/18 02/12/18 Range/Units 05:40 05:40 WBC 8.5 (4.0-10.5) K/mm3 RBC 3.56 L (4.1-5.6) M/mm3 Hgb 10.5 L (12.5-18.0) gm/dl Hct 33.3 L (42-50) % MCV 93.5 (78-100) fl MCH 29.4 (26-32) pg MCHC 31.5 L (32-36) g/dl RDW 15.8 H (11.5-14.0) % Plt Count 247 (150-450) K/mm3 MPV 11.1 H (6-9.5) fl Gran % 75.7 H (36.0-66.0) % Eos # (Auto) 0.01 (0-0.5) Absolute Lymphs (auto) 1.07 (1.0-4.6) Absolute Monos (auto) 0.97 (0.0-1.3) Lymphocytes % 12.6 L (24.0-44.0) % Monocytes % 11.4 (0.0-12.0) % Eosinophils % 0.1 (0.00-5.0) % Basophils % 0.2 (0.0-0.4) % Absolute Granulocytes 6.43 (1.4-6.9) Basophils # 0.02 (0-0.4) ESR (0-15) mm/hr PT (8.83-12.87) SECONDS INR (0.8-3.0) APTT (24.1-36.1) SECONDS Sodium 135 L (137-145) mmol/L Potassium 3.9 (3.5-5.1) mmol/L Chloride 101 (98-107) mmol/L Carbon Dioxide 27 (22-30) mmol/L Anion Gap 11.1 (5-15) MEQ/L BUN 31 H (9-20) mg/dL Creatinine 1.24 (0.66-1.25) mg/dL Estimated GFR > 60.0 ML/MIN Glucose 101 (74-106) mg/dL Uric Acid (3.5-7.2) mg/dL Calcium 8.7 (8.4-10.2) mg/dL Total Bilirubin (0.2-1.3) mg/dL AST (17-59) U/L ALT (0-50) U/L Alkaline Phosphatase (38-126) U/L Creatine Kinase (55-170) U/L NT-Pro-B Natriuret Pep (0-1800) pg/mL Serum Total Protein (6.3-8.2) g/dL Albumin (3.5-5.0) g/dL - Radiology Impressions Radiology Exams & Impressions: Radiology Procedures Category Date Time Status CHEST 1 VIEW (PORTABLE) Stat Exams 02/11/18 20:30 Taken WRIST (MIN 3 VIEWS) Stat Exams 02/11/18 20:28 Taken - Other Procedures and Tests Respiratory Therapy 02/12/18 03:28 Oxygen NASAL CANNULA 2 lpm 02/12/18 03:31 neb [Respiratory Nebulizer] PRN 02/12/18 07:00 Respiratory MDI BID Assessment/Plan (1) Cellulitis Current Visit: Yes Status: Acute Qualifiers: Site of cellulitis: extremity Site of cellulitis of extremity: upper extremity Laterality: right Qualified Code(s): L03.113 - Cellulitis of right upper limb Assessment & Plan: apparently improved well overnight with the clinda today minimal swelling and redness and warmth but severe pain still will continue the clinda add prednisone with his hx of gout as well as elevated esr as well his location of the redness and swelling does not seem to be consistent with any infection in the wrist joint or tenosynovitis at this time however his extreme pain and elevated esr call concern for this with rapid improvement will continue to encourage elevation, ice and antibiotic he is a very poor surgical candidate should he need a debridement given his severely reduced EF and ckd he is also extremely sensitive to pain in his lower extremities making it difficult to differentiate the pain associated with the acute abnormality in the right hand Code(s): L03.90 - CELLULITIS, UNSPECIFIED (2) Impaired gait Current Visit: Yes Status: Acute Code(s): R26.9 - UNSPECIFIED ABNORMALITIES OF GAIT AND MOBILITY (3) Chronic systolic (congestive) heart failure Current Visit: Yes Status: Chronic Assessment & Plan: severely reduced EF stop fluids monitor fluid intake restart home meds Code(s): I50.22 - CHRONIC SYSTOLIC (CONGESTIVE) HEART FAILURE (4) Gout Current Visit: Yes Status: Chronic Qualifiers: Gout etiology: unspecified cause Qualified Code(s): M10.9 - Gout, unspecified Code(s): M10.9 - GOUT, UNSPECIFIED (5) Chronic a-fib Current Visit: Yes Status: Chronic Assessment & Plan: continue warfarin monitor inr on clinda Code(s): I48.2 - CHRONIC ATRIAL FIBRILLATION (6) Chronic hypoxemic respiratory failure Current Visit: Yes Status: Chronic (7) Type 2 diabetes mellitus Current Visit: Yes Status: Chronic (8) CKD (chronic kidney disease) Current Visit: Yes Status: Chronic Qualifiers: Chronic kidney disease stage: stage 3 (moderate) Qualified Code(s): N18.3 - Chronic kidney disease, stage 3 (moderate) Code(s): N18.9 - CHRONIC KIDNEY DISEASE, UNSPECIFIED
[2018-02-12] MEDS: Advair Hfa 230/21 Mcg COMMON CANISTER IH SCH ×2 (08:45→19:48)
--- NOTE | 2018-02-12 09:07 | XRAY ---
Indication: Pain. Limited range of motion. No known injury. Comparison: None 3 views of the right wrist demonstrates advanced radiocarpal degenerative changes as evidenced by joint space loss, sclerosis, spurring, and tiny subcortical cysts. Also ulnar carpal degenerative chondrocalcinosis and mild ulnar negative deviation. There is widening of the scapholunate articulation favoring underlying ligamentous tear. No other bony, articular, or soft tissue abnormalities.
--- NOTE | 2018-02-12 09:11 | XRAY ---
Indication: Cough. Comparison: December 25, 2017. Portable apical lordotic chest unchanged again demonstrating borderline cardiomegaly with left-sided AICD and focal eventration of the right hemidiaphragm. Remaining heart and lungs unremarkable.
[2018-02-12] MEDS: Coreg 3.125 MG PO SCH ×3 (09:29→22:44)
[2018-02-12] MEDS: DELTASONE 20 MG PO SCH (09:29)
[2018-02-12] MEDS: NORCO 7.5/325 MG TAB PO PRN (09:35)
[2018-02-12] MEDS: Lasix 40 MG PO SCH (09:36)
[2018-02-12] MEDS ORDERED: NON-FORMULARY ITEM (Sacubitril/Valsartan [Entresto 24 Mg-26 Mg Tablet] 1 EACH) PO SCH (10:00)
[2018-02-12] MEDS: ENTRESTO 49 MG-51 MG TABLET PO SCH ×3 (10:57→22:44)
[2018-02-12] MEDS: Aldactone 25 MG PO SCH (11:01)
[2018-02-12] MEDS ORDERED: Coumadin 2.5 MG PO SCH (18:00)
[2018-02-12] MEDS ORDERED: NON-FORMULARY ITEM (Simvastatin 40 Mg [Zocor 40 Mg] 20 MG) PO SCH (22:00)
[2018-02-12] MEDS ORDERED: Sodium Chloride 0.9% 250 ML 250 ML IV SCH (22:15)
[2018-02-12] MEDS ORDERED: Sodium Chloride 0.9% 1000 ML 1,000 ML ONE (22:22)
[2018-02-12] MEDS: ZOCOR 20MG PO SCH (22:25)
[2018-02-12] MEDS ORDERED: Levofloxacin 500MG/100ML D5W 500 MG/100 ML BAG IV SCH (22:30)
[2018-02-12 22:32] LABS: BASOPHIL % 0.2 % (0.0-0.4); Basophil (Absolute #) 0.02 (0-0.4); Eosinophil (Absolute #) 0 (0-0.5); Granulocytes % 91.1 % (36.0-66.0); Hematocrit 34.9 % (42-50); Hemoglobin 11.2 gm/dl (12.5-18.0); Lactic Acid 2.5 (0.4-2.0); Lymphocyte (Absolute #) 0.48 (1.0-4.6); Mean Cell Volume 93.3 fl (78-100); Mean Corpuscular Hemoglobin 29.9 pg (26-32); Mean Corpuscular Hgb Concent. 32.1 g/dl (32-36); Mean Platelet Volume 10.6 fl (6-9.5); Monocyte (Absolute #) 0.36 (0.0-1.3); Monocytes % 3.7 % (0.0-12.0); Platelet Count 246 K/mm3 (150-450); Red Blood Count 3.74 M/mm3 (4.1-5.6); Red Cell Distribution Width 15.8 % (11.5-14.0); White Blood Count 9.7 K/mm3 (4.0-10.5)
[2018-02-12] MEDS ORDERED: Sodium Chloride 0.9% 1000 ML 1,000 ML IV SCH ×2 (23:30)
[2018-02-13 01:24] LABS: Slide Review 1 YES
[2018-02-13 06:13] LABS: BASOPHIL % 0.2 % (0.0-0.4); Basophil (Absolute #) 0.02 (0-0.4); Eosinophil (Absolute #) 0 (0-0.5); Granulocyte Absolute (ANC) 10.94 (1.4-6.9); Granulocytes % 88.2 % (36.0-66.0); Hematocrit 32.6 % (42-50); Hemoglobin 10.4 gm/dl (12.5-18.0); Lymphocyte (Absolute #) 0.63 (1.0-4.6); Lymphocytes % 5.1 % (24.0-44.0); Mean Cell Volume 92.9 fl (78-100); Mean Corpuscular Hemoglobin 29.6 pg (26-32); Mean Corpuscular Hgb Concent. 31.9 g/dl (32-36); Mean Platelet Volume 11.4 fl (6-9.5); Monocyte (Absolute #) 0.81 (0.0-1.3); Monocytes % 6.5 % (0.0-12.0); Platelet Count 235 K/mm3 (150-450); Red Blood Count 3.51 M/mm3 (4.1-5.6); Red Cell Distribution Width 15.6 % (11.5-14.0); White Blood Count 12.4 K/mm3 (4.0-10.5)
[2018-02-13 06:18] LABS: ANION GAP 11.4 MEQ/L (5-15); BLOOD UREA NITROGEN 35 mg/dL (9-20); CHLORIDE 101 mmol/L (98-107); Calcium 8.8 mg/dL (8.4-10.2); Carbon Dioxide 27 mmol/L (22-30); Creatinine 1 1.22 mg/dL (0.66-1.25); Glucose 145 mg/dL (74-106); Potassium 3.9 mmol/L (3.5-5.1); SODIUM 135 mmol/L (137-145)
[2018-02-13 06:20] LABS: INR 3.77 (0.8-3.0)
[2018-02-13] MEDS: Advair Hfa 230/21 Mcg COMMON CANISTER IH SCH ×2 (07:28→19:12)
--- NOTE | 2018-02-13 08:06 | XRAY ---
Indication: Cough. Hypertension. Comparison: February 11, 2018. Portable chest again demonstrates cardiomegaly with left-sided AICD and focal eventration of the right hemidiaphragm. No new/acute cardiopulmonary abnormalities.
[2018-02-13] MEDS: DELTASONE 20 MG PO SCH (08:53)
[2018-02-13] MEDS: Lasix 40 MG PO SCH (08:54)
[2018-02-13] MEDS: NORCO 7.5/325 MG TAB PO PRN (08:54)
[2018-02-13] MEDS: Aldactone 25 MG PO SCH (08:55)
[2018-02-13] MEDS: Coreg 3.125 MG PO SCH ×2 (08:55→22:24)
[2018-02-13] MEDS: ENTRESTO 49 MG-51 MG TABLET PO SCH ×2 (08:55→22:23)
--- NOTE | 2018-02-13 13:41 | PCM.NOTE ---
Date and Time: 02/13/18 6306 Subjective Assessment: Pt's arm is feeling much better today. Not sensitive to touch. Pain went from 10/10 to 6/10. Swelling is decrease. Pt mirian po. - Review of Systems Constitutional: No Fever Skin: Cellulitis Objective Exam General Appearance: no apparent distress, alert, obese Neurologic Exam: oriented x 3, cooperative Skin Exam: other (RUE with mild edema to hand, mild erythema to hand, no induration/exudate. mildly ttp.) Respiratory Exam: normal breath sounds (good air exchange), lungs clear, wheezing (slight scattered), No crackles/rales, No rhonchi Cardiovascular Exam: regular rate/rhythm, normal heart sounds, No murmur OBJECTIVE DATA Vital Signs: Vital Signs - 24 hr Temp Pulse Resp BP Pulse Ox 02/13/18 10:39 20 93/49 96 02/13/18 07:28 72 16 96 02/13/18 06:31 97.8 F 69 20 95/57 97 02/13/18 06:09 95/57 02/13/18 04:14 97.6 F 70 20 92/53 96 02/12/18 23:53 98.0 F 71 20 86/53 95 02/12/18 20:00 98.6 F 71 18 89/51 94 L 02/12/18 19:48 71 18 94 L 02/12/18 16:00 98.1 F 71 16 89/54 92 L Oxygen-Last 24 hours O2 Percentage 2 Liters = 28% O2 Percentage 2 Liters = 28% Pain Assessment - Last Documented Pain Intensity 1 Pain Scale Used 0-10 Pain Scale Intake and Output: Intake & Output 02/11/18 02/12/18 02/13/18 02/14/18 11:59 11:59 11:59 11:59 Intake Total 712 2549 240 Output Total 125 950 200 Balance 587 1599 40 Weight 103.9 kg Lab Results: Lab Results-Last 24 Hours 02/12/18 02/12/18 02/13/18 Range/Units 22:25 22:25 00:52 WBC 9.7 (4.0-10.5) K/mm3 RBC 3.74 L (4.1-5.6) M/mm3 Hgb 11.2 L (12.5-18.0) gm/dl Hct 34.9 L (42-50) % MCV 93.3 (78-100) fl MCH 29.9 (26-32) pg MCHC 32.1 (32-36) g/dl RDW 15.8 H (11.5-14.0) % Plt Count 246 (150-450) K/mm3 MPV 10.6 H (6-9.5) fl Gran % 91.1 H (36.0-66.0) % Eos # (Auto) 0 (0-0.5) Absolute Lymphs (auto) 0.48 L (1.0-4.6) Absolute Monos (auto) 0.36 (0.0-1.3) Lymphocytes % 5.0 L (24.0-44.0) % Monocytes % 3.7 (0.0-12.0) % Eosinophils % 0.0 (0.00-5.0) % Basophils % 0.2 (0.0-0.4) % Absolute Granulocytes 8.80 H (1.4-6.9) Basophils # 0.02 (0-0.4) PT (8.83-12.87) SECONDS INR (0.8-3.0) Sodium (137-145) mmol/L Potassium (3.5-5.1) mmol/L Chloride (98-107) mmol/L Carbon Dioxide (22-30) mmol/L Anion Gap (5-15) MEQ/L BUN (9-20) mg/dL Creatinine (0.66-1.25) mg/dL Estimated GFR ML/MIN Glucose (74-106) mg/dL Lactic Acid 2.5 H 1.4 (0.4-2.0) Calcium (8.4-10.2) mg/dL Slides for Path Review YES 02/13/18 02/13/18 02/13/18 Range/Units 05:15 05:15 05:15 WBC 12.4 H (4.0-10.5) K/mm3 RBC 3.51 L (4.1-5.6) M/mm3 Hgb 10.4 L (12.5-18.0) gm/dl Hct 32.6 L (42-50) % MCV 92.9 (78-100) fl MCH 29.6 (26-32) pg MCHC 31.9 L (32-36) g/dl RDW 15.6 H (11.5-14.0) % Plt Count 235 (150-450) K/mm3 MPV 11.4 H (6-9.5) fl Gran % 88.2 H (36.0-66.0) % Eos # (Auto) 0 (0-0.5) Absolute Lymphs (auto) 0.63 L (1.0-4.6) Absolute Monos (auto) 0.81 (0.0-1.3) Lymphocytes % 5.1 L (24.0-44.0) % Monocytes % 6.5 (0.0-12.0) % Eosinophils % 0.0 (0.00-5.0) % Basophils % 0.2 (0.0-0.4) % Absolute Granulocytes 10.94 H (1.4-6.9) Basophils # 0.02 (0-0.4) PT 44.4 H (8.83-12.87) SECONDS INR 3.77 H (0.8-3.0) Sodium 135 L (137-145) mmol/L Potassium 3.9 (3.5-5.1) mmol/L Chloride 101 (98-107) mmol/L Carbon Dioxide 27 (22-30) mmol/L Anion Gap 11.4 (5-15) MEQ/L BUN 35 H (9-20) mg/dL Creatinine 1.22 (0.66-1.25) mg/dL Estimated GFR > 60.0 ML/MIN Glucose 145 H (74-106) mg/dL Lactic Acid (0.4-2.0) Calcium 8.8 (8.4-10.2) mg/dL Slides for Path Review Radiology Exams: Radiology Procedures Category Date Time Status CHEST 1 VIEW (PORTABLE) Routine Exams 02/13/18 04:23 Completed CHEST 1 VIEW (PORTABLE) Stat Exams 02/11/18 20:30 Completed WRIST (MIN 3 VIEWS) Stat Exams 02/11/18 20:28 Completed Multi-Disciplinary Progress Notes: Multi-Disciplinary Progress Notes 02/12/18 16:42 Physical Therapy Note by Yamila Ferguson OBSERVATION STAY PATIENT D/C PLAN ESTABLISHED FOR EMERGENCY ADMIT TO [facility] TOMORROW. THERAPY INTERVENTION APPROPRIATE WILL TAKE PLACE IN THAT SETTING. Initialized on 02/12/18 16:42 - END OF NOTE Assessment/Plan (1) Cellulitis Current Visit: Yes Status: Acute Qualifiers: Site of cellulitis: extremity Site of cellulitis of extremity: upper extremity Laterality: right Qualified Code(s): L03.113 - Cellulitis of right upper limb Assessment & Plan: Doing better. Continue with clindamycin IV and prednisone po for inflammation. Code(s): L03.90 - CELLULITIS, UNSPECIFIED (2) Elevated INR Current Visit: Yes Status: Acute Assessment & Plan: Likely due to clindamycin. Decreased coumadin from 2.5mg to 1 mg daily. Daily INRs. Today is 3.77. Code(s): R79.1 - ABNORMAL COAGULATION PROFILE (3) Weakness Current Visit: Yes Status: Acute Code(s): R53.1 - WEAKNESS (4) Chronic hypoxemic respiratory failure Current Visit: Yes Status: Chronic (5) Chronic systolic (congestive) heart failure Current Visit: Yes Status: Chronic Assessment & Plan: Last night the nurse had contacted me for BP in the 80s systolic; however he has been having low BP since admission and he stated to nurse that he often has low BP. I did not change any of his meds, left pt on bystolic and entresto and he is stable and asymptomatic. Code(s): I50.22 - CHRONIC SYSTOLIC (CONGESTIVE) HEART FAILURE (6) Type 2 diabetes mellitus Current Visit: Yes Status: Chronic Qualifiers: Diabetes mellitus fpc insulin use: without terminologist use (7) Hypertension Current Visit: No Status: Chronic Qualifiers: Hypertension type: essential hypertension Qualified Code(s): I10 - Essential (primary) hypertension Assessment & Plan: stable Code(s): I10 - ESSENTIAL (PRIMARY) HYPERTENSION
[2018-02-13] MEDS ORDERED: Coumadin 1 MG PO SCH (18:00)
[2018-02-13] MEDS ORDERED: Levofloxacin 500MG/100ML D5W 500 MG/100 ML BAG IV SCH (22:00)
[2018-02-13] MEDS: ZOCOR 20MG PO SCH (22:24)
[2018-02-14 05:38] LABS: BASOPHIL % 0.1 % (0.0-0.4); Basophil (Absolute #) 0.01 (0-0.4); Eosinophil (Absolute #) 0 (0-0.5); Granulocyte Absolute (ANC) 12.61 (1.4-6.9); Granulocytes % 90.4 % (36.0-66.0); Hematocrit 31.6 % (42-50); Lymphocyte (Absolute #) 0.56 (1.0-4.6); Mean Cell Volume 92.7 fl (78-100); Mean Corpuscular Hemoglobin 29.3 pg (26-32); Mean Corpuscular Hgb Concent. 31.6 g/dl (32-36); Mean Platelet Volume 11.1 fl (6-9.5); Monocyte (Absolute #) 0.76 (0.0-1.3); Monocytes % 5.5 % (0.0-12.0); Platelet Count 251 K/mm3 (150-450); Red Blood Count 3.41 M/mm3 (4.1-5.6); Red Cell Distribution Width 15.7 % (11.5-14.0); White Blood Count 13.9 K/mm3 (4.0-10.5)
[2018-02-14 05:54] LABS: INR 3.45 (0.8-3.0)
[2018-02-14 06:01] LABS: ALBUMIN 2.9 g/dL (3.5-5.0); ALKALINE PHOSPHATASE 80 U/L (38-126); ANION GAP 10.4 MEQ/L (5-15); BLOOD UREA NITROGEN 34 mg/dL (9-20); CHLORIDE 101 mmol/L (98-107); Calcium 8.6 mg/dL (8.4-10.2); Carbon Dioxide 27 mmol/L (22-30); Creatinine 1 1.09 mg/dL (0.66-1.25); Glucose 138 mg/dL (74-106); Potassium 4.3 mmol/L (3.5-5.1); SGOT/AST 12 U/L (17-59); SGPT/ALT 11 U/L (0-50); SODIUM 134 mmol/L (137-145)
[2018-02-14 06:48] VITALS: PULSE 70
[2018-02-14] MEDS: Advair Hfa 230/21 Mcg COMMON CANISTER IH SCH (07:21)
[2018-02-14] MEDS: NORCO 7.5/325 MG TAB PO PRN (08:30)
[2018-02-14] MEDS: Aldactone 25 MG PO SCH (09:35)
[2018-02-14] MEDS: Coreg 3.125 MG PO SCH (09:36)
[2018-02-14] MEDS: Lasix 40 MG PO SCH (09:36)
[2018-02-14] MEDS: DELTASONE 20 MG PO SCH (09:36)
[2018-02-14] MEDS: ENTRESTO 49 MG-51 MG TABLET PO SCH (09:37)
[2018-02-14 11:09] LABS: Slide Review 1 YES
[2018-02-14 11:45] VITALS: BP 91/50; O2SAT 96
--- NOTE | 2018-02-14 11:46 | PCM.DS ---
Discharge Summary Date of Admission: 02/12/18 00:16 Admitting Physician: JEOVANNY ORTIZ Primary Care Provider: JEOVANNY ORTIZ Allergies Allergies rivaroxaban [From Xarelto] Allergy (Verified 02/11/18 19:53) Hospital Summary - Hospital Course Hospital Course: Pt was admitted from [facility] with cellulitis to the R hand (vs gout) - he was treated with IV clindamycin and prednisone. After 1d on clindamycin he was still having quite a bit of pain. The next 2 days the pain was noticeably better with decreased swelling and redness. He is tolerating po well. Will be discharged today to [facility] on po antibiotics (bactrim). He has had a cough for several weeks and sputum culture done here grew Enterobacter clocae, resistant to first generation cephalosporins but susceptible to bactrim. Pt's INR has been elevated after being on the clindamycin for 2 days - was initially 3.77, then I decreased his warfarin from 2.5mg daily to 1 mg daily and this morning the INR is 3.45. He will continue to need daily INRs while on the antibiotics. - Vitals & Intake/Output Vital Signs: Vital Signs Temperature 98.2 F 02/14/18 06:47 Pulse Rate 70 02/14/18 07:25 Respiratory Rate 17 02/14/18 07:25 Blood Pressure 103/58 02/14/18 06:47 O2 Sat by Pulse Oximetry 97 02/14/18 07:25 Oxygen-Last Documented O2 Percentage 2 Liters = 28% Intake & Output: Intake & Output 02/11/18 02/12/18 02/13/18 02/14/18 11:59 11:59 11:59 11:59 Intake Total 712 2549 2427 Output Total 659 551 8496 Balance 587 1599 -203 Weight 103.9 kg 103.6 kg - Lab Result Diagrams: 02/14/18 05:15 02/14/18 05:15 Lab Results-Last 24 Hrs: Lab Results-Last 24 Hours 02/14/18 02/14/18 02/14/18 Range/Units 05:15 05:15 05:15 WBC 13.9 H (4.0-10.5) K/mm3 RBC 3.41 L (4.1-5.6) M/mm3 Hgb 10.0 L (12.5-18.0) gm/dl Hct 31.6 L (42-50) % MCV 92.7 (78-100) fl MCH 29.3 (26-32) pg MCHC 31.6 L (32-36) g/dl RDW 15.7 H (11.5-14.0) % Plt Count 251 (150-450) K/mm3 MPV 11.1 H (6-9.5) fl Gran % 90.4 H (36.0-66.0) % Eos # (Auto) 0 (0-0.5) Absolute Lymphs (auto) 0.56 L (1.0-4.6) Absolute Monos (auto) 0.76 (0.0-1.3) Lymphocytes % 4.0 L (24.0-44.0) % Monocytes % 5.5 (0.0-12.0) % Eosinophils % 0.0 (0.00-5.0) % Basophils % 0.1 (0.0-0.4) % Absolute Granulocytes 12.61 H (1.4-6.9) Basophils # 0.01 (0-0.4) PT 40.6 H (8.83-12.87) SECONDS INR 3.45 H (0.8-3.0) Sodium 134 L (137-145) mmol/L Potassium 4.3 (3.5-5.1) mmol/L Chloride 101 (98-107) mmol/L Carbon Dioxide 27 (22-30) mmol/L Anion Gap 10.4 (5-15) MEQ/L BUN 34 H (9-20) mg/dL Creatinine 1.09 (0.66-1.25) mg/dL Estimated GFR > 60.0 ML/MIN Glucose 138 H (74-106) mg/dL Calcium 8.6 (8.4-10.2) mg/dL Total Bilirubin 0.50 (0.2-1.3) mg/dL AST 12 L (17-59) U/L ALT 11 (0-50) U/L Alkaline Phosphatase 80 (38-126) U/L Serum Total Protein 6.0 L (6.3-8.2) g/dL Albumin 2.9 L (3.5-5.0) g/dL Slides for Path Review YES Micro Results-Entire Visit: Microbiology 02/12/18 00:32 Gram Stain - Final Sputum - Expectorant Sputum Culture - Final Enterobacter Clocae Complex 02/11/18 21:00 Blood Culture - Preliminary Blood NO GROWTH TO DATE - Radiology Exams Ordered Rad Exams-Entire Visit: Radiology Procedures Category Date Time Status CHEST 1 VIEW (PORTABLE) Routine Exams 02/13/18 04:23 Completed - Procedures and Test Procedures and Tests throughout Hospitalization: Therapy Orders & Screens 02/12/18 01:45 OT Screen per Nursing Assess Comment: Protocol Order Physician Instructions: Greater than 3 points order OT Admission Screening Reason For Exam: Triggered on Admission Diagnosis: cellulitis, weakness Open Wound/Cellutlitis/Pressure Ulcers: Yes Acute Fx/ORIF/Change in wt bearing status: Yes Severe MUSCULOSKELETAL pain: No ADL Dysfunction: No Acute CVA w/Hemiparesis/Hemiplegia: No Decreased Functional Mobility/Strength: No Sprain/Strain: No Acute Post-op Mobility Dysfunction: No Total Points: 10 PT Screen per Nursing Assess Comment: Protocol Order Physician Instructions: Greater than 3 points order PT Admission Screenin Reason For Exam: Triggered on Admission Diagnosis: cellulitis, weakness Open Wound/Cellutlitis/Pressure Ulcers: Yes Acute Fx/ORIF/Change in wt bearing status: Yes Severe MUSCULOSKELETAL pain: No ADL Dysfunction: No Acute CVA w/Hemiparesis/Hemiplegia: No Decreased Functional Mobility/Strength: No Sprain/Strain: No Acute Post-op Mobility Dysfunction: No Total Points: 10 RT Screen per Nursing Assess Comment: Protocol Order Physician Instructions: Greater than 3 points order RT Admission Screen Reason For Exam: Triggered on Admission Diagnosis: cellulitis, weakness Diagnosis: cellulitis, weakness Pneumonia: No Home O2: Yes Asthma: No CHF: Yes Home CPAP/BIPAP: No Home Nebs/MDI: Yes Total Points: 13 02/12/18 03:28 Oxygen NASAL CANNULA 2 lpm Comment: Diagnosis: cellulitis, weakness 02/12/18 03:31 neb [Respiratory Nebulizer] PRN Comment: ALB Q4H PRN Diagnosis: cellulitis, weakness 02/12/18 07:00 Respiratory MDI BID Comment: Diagnosis: cellulitis, weakness Discharge Exam General Appearance: no apparent distress, alert Neurologic Exam: oriented x 3, cooperative Skin Exam: warm, dry, No rash Respiratory Exam: normal breath sounds, lungs clear, No crackles/rales, No rhonchi, No wheezing Cardiovascular Exam: regular rate/rhythm, normal heart sounds, No murmur Extremity Exam: other (RUE with hand mild diffuse edema. no erythema/induration/ exudate. nttp.) Final Diagnosis/Problem List - Final Discharge Diagnosis/Problem (1) Cellulitis Current Visit: Yes Status: Acute Assessment & Plan: Much improved; was on clindamycin IV then changed to levaquin during his stay. Was going to send him on Levaquin, but in light of his CHF will send to [facility] on 1 week of bactrim, and to finish 1 week (4 more days) of prednisone. Will f/u with Dr. Ortiz. (2) Elevated INR Current Visit: Yes Status: Acute Assessment & Plan: Continue to check daily INRs; the antibiotics are causing an elevation. (3) Weakness Current Visit: Yes Status: Resolved (4) Chronic hypoxemic respiratory failure Current Visit: Yes Status: Chronic (5) Chronic systolic (congestive) heart failure Current Visit: Yes Status: Chronic (6) Type 2 diabetes mellitus Current Visit: Yes Status: Chronic (7) Hypertension Current Visit: No Status: Chronic - Discharge Disposition: IN TO [facility] Condition: Stable Prescriptions: New Clindamycin HCl 300 mg PO TID #30 capsule Oxycodone HCl/Acetaminophen [Percocet 5-325 mg Tablet] 1 each PO QID PRN #16 tablet MDD 4 PRN Reason: Pain Warfarin Sodium 1 mg [Coumadin 1 MG] 1 mg PO DAILY #10 tablet Prednisone 20 mg [Deltasone 20 mg] 40 mg PO DAILY #4 tablet Levofloxacin [Levaquin] 500 mg PO DAILY #7 tablet Continue Furosemide 40 mg [Lasix 40 MG] 40 mg PO DAILY Budesonide/Formoterol Fumarate [Symbicort 160-4.5 Mcg Inhaler] 2 puffs IH DAILY Carvedilol 3.125 mg [Coreg 3.125 MG] 0.5 tab PO DAILY Simvastatin 40 mg [Zocor 40 mg] 20 mg PO HS Tamsulosin HCl 0.4 mg [Flomax 0.4 MG] 0.4 mg PO DAILY Spironolactone 12.5 mg PO DAILY Sacubitril/Valsartan [Entresto 24 mg-26 mg Tablet] 1 each PO DAILY Hydrocodone Bit/Acetaminophen [Hydrocodon-Acetaminoph 7.5-325] 1 each PO Q4- 6HPRN PRN PRN Reason: pain Albuterol 2.5 mg/3 ml Neb [Proventil 2.5 mg/3 ml Neb] 2.5 mg IH Discontinued Warfarin Sodium 2.5 mg [Coumadin 2.5 MG] 2.5 mg PO UD Warfarin Sodium 5 mg [Coumadin 5 MG] 5 mg PO UD Forms: Patient Portal Information
== END 2018-02-14 14:10 | disposition home or self-care (01) ==
LOC: ED 19:39 → MED SURG 02-12 00:16
PROVIDERS: ADMIT Family Medicine; ATTEND Family Medicine
DX: R53.1 Weakness (principal); L03.113 Cellulitis of right upper limb; I50.22 Chronic systolic (congestive) heart failure; I50.84 End stage heart failure; R79.1 Abnormal coagulation profile; J96.11 Chronic respiratory failure with hypoxia; E11.9 Type 2 diabetes mellitus without complications; I12.9 Hypertensive chronic kidney disease with stage 1 through stage 4 chronic kidney disease, or unspecified chronic kidney disease; N18.3 Chronic kidney disease, stage 3 (moderate); I48.2 Chronic atrial fibrillation; M10.9 Gout, unspecified; R26.9 Unspecified abnormalities of gait and mobility; Z79.01 Long term (current) use of anticoagulants; Z95.810 Presence of automatic (implantable) cardiac defibrillator
CPT/HCPCS: 36000; 36415; 71045; 73110; 80048; 80053; 82550; 83605; 83880; 84550; 85025; 85610; 85652; 85730; 87040; 87070; 87077; 87186; 94640; 94760; 96374; 99285; G0378; 96360; 96365; 96375; J1956; J2270; J2405; A9270-GY

== ENCOUNTER 2018-04-28 02:18 | Emergency (ER) | payer MEDICARE ==
[2018-04-28 02:33] VITALS: O2SAT 100
--- NOTE | 2018-04-28 02:39 | ERPHSYRPT ---
- History of Present Illness Time Seen by Provider: 04/28/18 02:25 Source: patient, family, EMS Patient Subjective Stated Complaint: Pt arrives to ER via EMS for a litany of complaints including decreased urination last micturation at 0930, bilateral leg swelling worse than usual, chronic lower back that is worse tonight without injury, chronic left knee pain worse for past few months, nausea for past 2 days without vomiting, constipation for unknown amount of time last BM 0930 and was "rabbit size", dry mouth, SOB for past few days unable to sleep d/t. Triage Nursing Assessment: Mouth is dry. A&Ox4. +3 pitting edema right leg +4 pitting edema left leg. Physician History: 77 y/o white male presents with a number of complaints. pt is constipated, last bm was 0930 on 04/27/18, has back pain without injury, soa, difficulty urinating and is aware kidneys are not functioning normally and his bilat leg edema is worse than usual. Timing/Duration: day(s) Severity: moderate Modifying Factors: Improves With: movement (worsens) Associated Symptoms: nausea, shortness of breath Allergies/Adverse Reactions: rivaroxaban [From Xarelto] Allergy (Verified 04/28/18 02:34) Home Medications: Budesonide/Formoterol Fumarate [Symbicort 160-4.5 Mcg Inhaler] 2 puffs IH DAILY 03/23/16 [History] Carvedilol 3.125 mg [Coreg 3.125 MG] 0.5 tab PO DAILY 03/23/16 [History] Simvastatin 40 mg [Zocor 40 mg] 20 mg PO HS 03/23/16 [History] Albuterol 2.5 mg/3 ml Neb [Proventil 2.5 mg/3 ml Neb] 2.5 mg IH 02/11/18 [ History] Bumetanide 2 mg PO BID 04/28/18 [History] C/Sourcherry/Celery/Grape Seed [Tart Zhou Capsule] 1,200 mg PO DAILY 04/28/18 [History] Garlic 3,000 mg PO DAILY 04/28/18 [History] Hydrocodone/Acetaminophen [Hydrocodone-Acetamin 5-325 mg] 1 each PO Q4HPRN PRN 04/28/18 [History] Metronidazole 500 mg PO TID 04/28/18 [History] Ondansetron HCl 4 mg PO 04/28/18 [History] Potassium Chloride 20 Meq [Klor-Con 20 MEQ] 20 meq PO BID 04/28/18 [History] Tramadol HCl [Ultram] 50 mg PO 04/28/18 [History] Vancomycin HCl [Vancomycin HCl Capsule] 125 mg PO Q6H 04/28/18 [History] Hx Tetanus, Diphtheria Vaccination/Date Given: Yes Hx Influenza Vaccination/Date Given: No Hx Pneumococcal Vaccination/Date Given: No - Review of Systems Constitutional: No Symptoms, No Fever Eyes: No Symptoms, No Eye Pain Ears, Nose, & Throat: No Symptoms, No Ear Pain Respiratory: Dyspnea, No Cough, No Stridor, No Wheezing Cardiac: No Symptoms, No Chest Pain, No Palpitations, No Syncope Abdominal/Gastrointestinal: Constipation, No Nausea, No Vomiting, No Diarrhea Genitourinary Symptoms: Urinary Retention, Flank Pain, No Frequency, No Hematuria, No Hesitancy Musculoskeletal: Back Pain (lower) Skin: No Symptoms Neurological: No Symptoms, No Dizziness, No Gait Changes, No Headache Psychological: No Symptoms, No Alcohol Abuse, No Drug Abuse, No Anxiety, No Depression Endocrine: No Symptoms, No Polyuria, No Polydipsia Hematologic/Lymphatic: No Symptoms, No Anemia Immunological/Allergic: No Symptoms All Other Systems: Reviewed and Negative - Past Medical History Pertinent Past Medical History: Yes Neurological History: No Pertinent History ENT History: No Pertinent History Cardiac History: Hypertension Respiratory History: CHF Endocrine Medical History: No Pertinent History Musculoskeletal History: Arthritis GI Medical History: No Pertinent History History: No Pertinent History Psycho-Social History: No Pertinent History Male Reproductive Disorders: No Pertinent History Other Medical History: Rotator cuff currently injured - Past Surgical History Past Surgical History: Yes Neuro Surgical History: No Pertinent History Cardiac: Internal Defibrillator, Pacemaker Respiratory: No Pertinent History Gastrointestinal: No Pertinent History Genitourinary: No Pertinent History Musculoskeletal: Other Male Surgical History: No Pertinent History Other Surgical History: Pacemaker, Right Knee Replacement, Right Shoulder - Social History Smoking Status: Former smoker How long have you smoked: 40+ yrs Exposure to second hand smoke: No Alcohol Use: Socially Drug Use: none Patient Lives Alone: No Significant Family History: heart disease, hypertension - Nursing Vital Signs Nursing Vital Signs: Initial Vital Signs Temperature 96.5 F 04/28/18 02:20 Pulse Rate 69 04/28/18 02:20 Respiratory Rate 22 04/28/18 02:20 Blood Pressure 93/68 04/28/18 02:20 O2 Sat by Pulse Oximetry 100 04/28/18 02:20 Pain Scale Pain Intensity [Back] 10 Pain Intensity 10 - Physical Exam General Appearance: mild distress, alert Eye Exam: PERRL/EOMI, No eyes nml inspection Ears, Nose, Throat Exam: normal ENT inspection, dry mucous membranes Neck Exam: normal inspection, non-tender, supple, full range of motion, No meningismus, No Brudzinski, No Kernig's Respiratory Exam: normal breath sounds, lungs clear, airway intact, No chest tenderness, No respiratory distress, No diminished breath sounds, No accessory muscle use, No rhonchi, No wheezing, No stridor Cardiovascular Exam: regular rate/rhythm, normal heart sounds, normal peripheral pulses Gastrointestinal/Abdomen Exam: soft, normal bowel sounds, No tenderness, No guarding, No rebound Male Genitalia Exam: No penile discharge Back Exam: normal inspection, normal range of motion, CVA tenderness, No vertebral tenderness Extremity Exam: normal range of motion, pelvis stable, pedal edema (bilat feet and ankle edema) Neurologic Exam: alert, oriented x 3, 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 no change from ekg dated 02/11/18) Ordered Tests: Active Orders 24 hr Category Date Time Status Clean Catch Urine Specimen STAT Care 04/28/18 02:42 Active EKG-ER Only STAT Care 04/28/18 02:42 Active IV Insertion STAT Care 04/28/18 02:42 Active ABDOMEN AND PELVIS W/0 CONTRAS [CT] Stat Exams 04/28/18 02:43 Taken CHEST 1 VIEW (PORTABLE) Stat Exams 04/28/18 02:43 Taken AMYLASE Stat Lab 04/28/18 03:30 Completed BNP [NT PRO BNP] Stat Lab 04/28/18 03:30 Completed CBC W DIFF Stat Lab 04/28/18 03:30 Completed CMP Stat Lab 04/28/18 03:30 Completed CULTURE,URINE Stat Lab 04/28/18 04:55 Received LIPASE Stat Lab 04/28/18 03:30 Completed Lactic Acid Stat Lab 04/28/18 03:32 Completed Lactic Acid Stat Lab 04/28/18 05:42 Results PROTIME WITH INR Stat Lab 04/28/18 03:30 Completed TROPONIN Q3H Lab 04/28/18 03:30 Completed TROPONIN Q3H Lab 04/28/18 05:45 Ordered TROPONIN Q3H Lab 04/28/18 05:47 Received TROPONIN Q3H Lab 04/28/18 11:45 Ordered TROPONIN Q3H Lab 04/28/18 14:45 Ordered UA W/ MICROSCOPIC Stat Lab 04/28/18 04:55 Completed Medication Summary Generic Name Dose Route Start Last Admin Trade Name Freq PRN Reason Stop Dose Admin Meropenem/Sodium Chloride 1 gm in 50 mls @ 100 mls/hr 04/28/18 06:00 05:46 Meropenem-0.9% Nacl 1 Gram/50 IV 05/28/18 05:59 Infused Q8HT [place] Infusion Discontinued Medications Generic Name Dose Route Start Last Admin Trade Name Freq PRN Reason Stop Dose Admin Bumetanide 1 mg 04/28/18 04:56 04/28/18 05:39 Bumex 1 Mg IV 04/28/18 04:57 1 mg STAT ONE Administration Bumetanide Confirm 04/28/18 05:36 Bumex 1 Mg Administered 04/28/18 05:37 Dose 1 mg .ROUTE .STK-MED ONE Sodium Chloride 500 mls @ 999 mls/hr 04/28/18 02:42 04/28/18 02:53 Sodium Chloride 0.9% 1000 Ml IV 04/28/18 03:12 Not Given .Q31M STA Sodium Chloride 500 mls @ 500 mls/hr 04/28/18 04:53 04/28/18 05:07 Sodium Chloride 0.9% 500 Ml IV 04/28/18 05:52 500 mls/hr .Q1H ONE Administration Sodium Chloride Confirm 04/28/18 04:56 Sodium Chloride 0.9% 100 Ml Ivpb Administered 04/28/18 04:57 Dose 100 mls @ ud IV .STK-MED ONE Sodium Chloride Confirm 04/28/18 04:56 Sodium Chloride 0.9% 1000 Ml Administered 04/28/18 04:57 Dose 1,000 mls @ ud .ROUTE .STK-MED ONE Meropenem Confirm 04/28/18 04:56 Merrem 500mg Administered 04/28/18 04:57 Dose 500 mg IV .STK-MED ONE Ondansetron HCl 4 mg 04/28/18 02:42 04/28/18 02:57 Zofran 4 Mg/2 Ml Vial IV 04/28/18 02:43 4 mg STAT ONE Administration Ondansetron HCl Confirm 04/28/18 02:54 Zofran 4 Mg/2 Ml Vial Administered 04/28/18 02:55 Dose 4 mg .ROUTE .STK-MED ONE Lab/Rad Data: Laboratory Result Diagrams 04/28/18 03:30 04/28/18 03:30 Laboratory Results 04/28/18 04/28/18 04/28/18 Range/Units 05:42 04:55 03:32 WBC (4.0-10.5) K/mm3 RBC (4.1-5.6) M/mm3 Hgb (12.5-18.0) gm/dl Hct (42-50) % MCV (78-100) fl MCH (26-32) pg MCHC (32-36) g/dl RDW (11.5-14.0) % Plt Count (150-450) K/mm3 MPV (6-9.5) fl Gran % (36.0-66.0) % Eos # (Auto) (0-0.5) Absolute Lymphs (auto) (1.0-4.6) Absolute Monos (auto) (0.0-1.3) Lymphocytes % (24.0-44.0) % Monocytes % (0.0-12.0) % Eosinophils % (0.00-5.0) % Basophils % (0.0-0.4) % Absolute Granulocytes (1.4-6.9) Basophils # (0-0.4) PT (8.83-12.87) SECONDS INR (0.8-3.0) Sodium (137-145) mmol/L Potassium (3.5-5.1) mmol/L Chloride (98-107) mmol/L Carbon Dioxide (22-30) mmol/L Anion Gap (5-15) MEQ/L BUN (9-20) mg/dL Creatinine (0.66-1.25) mg/dL Estimated GFR ML/MIN Glucose (74-106) mg/dL Lactic Acid 2.6 H 2.8 H (0.4-2.0) Calcium (8.4-10.2) mg/dL Total Bilirubin (0.2-1.3) mg/dL AST (17-59) U/L ALT (0-50) U/L Alkaline Phosphatase (38-126) U/L Troponin I (0.000-0.034) ng/mL NT-Pro-B Natriuret Pep (0-1800) pg/mL Serum Total Protein (6.3-8.2) g/dL Albumin (3.5-5.0) g/dL Amylase (30-110) U/L Lipase (23-300) U/L Ur Collection Type CLEAN CATCH Urine Color BROWN (YELLOW) Urine Appearance SLIGHTLY CLOUDY (CLEAR) Urine pH 6.0 (5-6) Ur Specific [place] 1.020 (1.005-1.025) Urine Protein TRACE (Negative) Urine Ketones NEGATIVE (NEGATIVE) Urine Blood 50 (0-5) Pascual/ul Urine Nitrite NEGATIVE (NEGATIVE) Urine Bilirubin NEGATIVE (NEGATIVE) Urine Urobilinogen NORMAL (0-1) mg/dL Ur Leukocyte Esterase NEGATIVE (NEGATIVE) Urine Microscopic RBC 2-5 (0-2) /HPF Urine Microscopic WBC 0-2 (0-5) /HPF Ur Epithelial Cells FEW (FEW) /HPF Amorphous Crystals MODERATE (NEGATIVE) /HPF Urine Bacteria FEW (NEGATIVE) /HPF Hyaline Casts 5-10 (0-2) /LPF Urine Culture Reflexed YES (NO) Urine Glucose NEGATIVE (NEGATIVE) mg/dL 04/28/18 04/28/18 04/28/18 Range/Units 03:30 03:30 03:30 WBC (4.0-10.5) K/mm3 RBC (4.1-5.6) M/mm3 Hgb (12.5-18.0) gm/dl Hct (42-50) % MCV (78-100) fl MCH (26-32) pg MCHC (32-36) g/dl RDW (11.5-14.0) % Plt Count (150-450) K/mm3 MPV (6-9.5) fl Gran % (36.0-66.0) % Eos # (Auto) (0-0.5) Absolute Lymphs (auto) (1.0-4.6) Absolute Monos (auto) (0.0-1.3) Lymphocytes % (24.0-44.0) % Monocytes % (0.0-12.0) % Eosinophils % (0.00-5.0) % Basophils % (0.0-0.4) % Absolute Granulocytes (1.4-6.9) Basophils # (0-0.4) PT 52.0 H (8.83-12.87) SECONDS INR 4.40 H (0.8-3.0) Sodium (137-145) mmol/L Potassium (3.5-5.1) mmol/L Chloride (98-107) mmol/L Carbon Dioxide (22-30) mmol/L Anion Gap (5-15) MEQ/L BUN (9-20) mg/dL Creatinine (0.66-1.25) mg/dL Estimated GFR ML/MIN Glucose (74-106) mg/dL Lactic Acid (0.4-2.0) Calcium (8.4-10.2) mg/dL Total Bilirubin (0.2-1.3) mg/dL AST (17-59) U/L ALT (0-50) U/L Alkaline Phosphatase (38-126) U/L Troponin I 0.060 H* (0.000-0.034) ng/mL NT-Pro-B Natriuret Pep 94352 H (0-1800) pg/mL Serum Total Protein (6.3-8.2) g/dL Albumin (3.5-5.0) g/dL Amylase (30-110) U/L Lipase (23-300) U/L Ur Collection Type Urine Color (YELLOW) Urine Appearance (CLEAR) Urine pH (5-6) Ur Specific [place] (1.005-1.025) Urine Protein (Negative) Urine Ketones (NEGATIVE) Urine Blood (0-5) Pascual/ul Urine Nitrite (NEGATIVE) Urine Bilirubin (NEGATIVE) Urine Urobilinogen (0-1) mg/dL Ur Leukocyte Esterase (NEGATIVE) Urine Microscopic RBC (0-2) /HPF Urine Microscopic WBC (0-5) /HPF Ur Epithelial Cells (FEW) /HPF Amorphous Crystals (NEGATIVE) /HPF Urine Bacteria (NEGATIVE) /HPF Hyaline Casts (0-2) /LPF Urine Culture Reflexed (NO) Urine Glucose (NEGATIVE) mg/dL 04/28/18 04/28/18 Range/Units 03:30 03:30 WBC 12.6 H (4.0-10.5) K/mm3 RBC 4.14 (4.1-5.6) M/mm3 Hgb 12.4 L (12.5-18.0) gm/dl Hct 38.1 L (42-50) % MCV 92.0 (78-100) fl MCH 29.9 (26-32) pg MCHC 32.5 (32-36) g/dl RDW 15.0 H (11.5-14.0) % Plt Count 244 (150-450) K/mm3 MPV 12.1 H (6-9.5) fl Gran % 77.2 H (36.0-66.0) % Eos # (Auto) 0.01 (0-0.5) Absolute Lymphs (auto) 1.68 (1.0-4.6) Absolute Monos (auto) 1.14 (0.0-1.3) Lymphocytes % 13.4 L (24.0-44.0) % Monocytes % 9.1 (0.0-12.0) % Eosinophils % 0.1 (0.00-5.0) % Basophils % 0.2 (0.0-0.4) % Absolute Granulocytes 9.69 H (1.4-6.9) Basophils # 0.03 (0-0.4) PT (8.83-12.87) SECONDS INR (0.8-3.0) Sodium 133 L (137-145) mmol/L Potassium 4.8 (3.5-5.1) mmol/L Chloride 92 L (98-107) mmol/L Carbon Dioxide 27 (22-30) mmol/L Anion Gap 18.4 H (5-15) MEQ/L BUN 45 H (9-20) mg/dL Creatinine 4.12 H (0.66-1.25) mg/dL Estimated GFR 15.0 ML/MIN Glucose 113 H (74-106) mg/dL Lactic Acid (0.4-2.0) Calcium 9.1 (8.4-10.2) mg/dL Total Bilirubin 0.90 (0.2-1.3) mg/dL AST 263 H (17-59) U/L ALT 76 H (0-50) U/L Alkaline Phosphatase 60 (38-126) U/L Troponin I (0.000-0.034) ng/mL NT-Pro-B Natriuret Pep (0-1800) pg/mL Serum Total Protein 6.3 (6.3-8.2) g/dL Albumin 3.6 (3.5-5.0) g/dL Amylase < 30 L (30-110) U/L Lipase 30 (23-300) U/L Ur Collection Type Urine Color (YELLOW) Urine Appearance (CLEAR) Urine pH (5-6) Ur Specific [place] (1.005-1.025) Urine Protein (Negative) Urine Ketones (NEGATIVE) Urine Blood (0-5) Pascual/ul Urine Nitrite (NEGATIVE) Urine Bilirubin (NEGATIVE) Urine Urobilinogen (0-1) mg/dL Ur Leukocyte Esterase (NEGATIVE) Urine Microscopic RBC (0-2) /HPF Urine Microscopic WBC (0-5) /HPF Ur Epithelial Cells (FEW) /HPF Amorphous Crystals (NEGATIVE) /HPF Urine Bacteria (NEGATIVE) /HPF Hyaline Casts (0-2) /LPF Urine Culture Reflexed (NO) Urine Glucose (NEGATIVE) mg/dL cxr-cardiomegaly ct scan abd/pelvis-aaa 4.75cm; ? porcelain gb. these findings d/w pt. also d/w pt the need to follow up with pcp re: gb findings. - Progress Progress: improved, re-examined Progress Note: 04/28/18 06:[address] Reina(hospitalist for [facility]) called back. i reviewed pt hx, condition, lab, ekg, cxr and ct abd/pelvis with dr. reina. he accepts pt for transfer and admission. 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 jordan, admit there and have dialysis if needed. Counseled pt/family regarding: lab results, diagnosis, rad results - Departure Time of Disposition: 06:11 Departure Disposition: Transfer Clinical Impression: Acute renal failure, CHF (congestive heart failure), Elevated INR, AAA ( abdominal aortic aneurysm), Porcelain gallbladder Condition: Fair Critical Care Time: No Referrals: [facility] [Primary Care Provider] - Instructions: Heart Failure
[2018-04-28] MEDS ORDERED: Zofran 4 MG/2 ML VIAL IV ONE (02:42)
[2018-04-28] MEDS ORDERED: Zofran 4 MG/2 ML VIAL ONE (02:54)
[2018-04-28 03:39] LABS: Lactic Acid 2.8 (0.4-2.0)
[2018-04-28 03:49] LABS: BASOPHIL % 0.2 % (0.0-0.4); Basophil (Absolute #) 0.03 (0-0.4); Eosinophil % 0.1 % (0.00-5.0); Eosinophil (Absolute #) 0.01 (0-0.5); Granulocyte Absolute (ANC) 9.69 (1.4-6.9); Granulocytes % 77.2 % (36.0-66.0); Hematocrit 38.1 % (42-50); Hemoglobin 12.4 gm/dl (12.5-18.0); INR 4.4 (0.8-3.0); Lymphocyte (Absolute #) 1.68 (1.0-4.6); Lymphocytes % 13.4 % (24.0-44.0); Mean Corpuscular Hemoglobin 29.9 pg (26-32); Mean Corpuscular Hgb Concent. 32.5 g/dl (32-36); Mean Platelet Volume 12.1 fl (6-9.5); Monocyte (Absolute #) 1.14 (0.0-1.3); Monocytes % 9.1 % (0.0-12.0); Platelet Count 244 K/mm3 (150-450); Red Blood Count 4.14 M/mm3 (4.1-5.6); White Blood Count 12.6 K/mm3 (4.0-10.5)
[2018-04-28 03:54] LABS: ALBUMIN 3.6 g/dL (3.5-5.0); ALKALINE PHOSPHATASE 60 U/L (38-126); AMYLASE < 30 U/L (30-110); ANION GAP 18.4 MEQ/L (5-15); BLOOD UREA NITROGEN 45 mg/dL (9-20); CHLORIDE 92 mmol/L (98-107); Calcium 9.1 mg/dL (8.4-10.2); Carbon Dioxide 27 mmol/L (22-30); Creatinine 1 4.12 mg/dL (0.66-1.25); Glucose 113 mg/dL (74-106); LIPASE 30 U/L (23-300); Potassium 4.8 mmol/L (3.5-5.1); SGOT/AST 263 U/L (17-59); SGPT/ALT 76 U/L (0-50); SODIUM 133 mmol/L (137-145); Total Protein 6.3 g/dL (6.3-8.2)
[2018-04-28] MEDS ORDERED: Sodium Chloride 0.9% 500 ML 500 ML IV ONE (04:53)
[2018-04-28] MEDS ORDERED: BUMEX 1 MG IV ONE (04:56)
[2018-04-28] MEDS ORDERED: MERREM 500MG IV ONE (04:56)
[2018-04-28] MEDS ORDERED: Sodium Chloride 0.9% 100 ML IVPB 100 ML IV ONE (04:56)
[2018-04-28] MEDS ORDERED: Sodium Chloride 0.9% 1000 ML 1,000 ML ONE (04:56)
[2018-04-28 05:08] LABS: Appearance SLIGHTLY CLOUDY (CLEAR); Bilirubin NEGATIVE (NEGATIVE); Blood 50 Ery/ul (0-5); Glucose NEGATIVE (NEGATIVE); Ketones NEGATIVE (NEGATIVE); Leukocyte Esterase NEGATIVE (NEGATIVE); Nitrite NEGATIVE (NEGATIVE); Protein,Urine Dip TRACE (Negative); Urobilinogen NORMAL mg/dL (0-1)
[2018-04-28 05:15] LABS: WBC 0-2 /HPF (0-5)
[2018-04-28 05:16] LABS: Amourphous Crystal MODERATE /HPF (NEGATIVE); Bacteria FEW /HPF (NEGATIVE); Epithelial Cells FEW /HPF (FEW)
[2018-04-28] MEDS ORDERED: BUMEX 1 MG ONE (05:36)
[2018-04-28 05:52] LABS: Lactic Acid 2.6 (0.4-2.0)
[2018-04-28] MEDS ORDERED: MEROPENEM-0.9% NACL 1 GRAM/50 1 GM/50 ML PIGGYBACK IV SCH (06:00)
[2018-04-28 07:09] VITALS: BP 97/68; PULSE 70
--- NOTE | 2018-04-28 08:56 | XRAY ---
Indication: Abdomen pain, nausea, and decreased urine output. Multiple contiguous axial images obtained through the abdomen and pelvis without contrast as ordered. Comparison: None Lung bases demonstrates mild left base fibrosis/scarring with minimal pleural thickening. No infiltrate or effusion. Heart is enlarged with partially visualized pacer lead. Small hiatal hernia. Noncontrasted stomach and bowel loops appear nonobstructed. Scattered descending and sigmoid diverticulosis. Dense porcelain gallbladder. Mild fatty liver. There is a vague 2 cm urinary bladder soft tissue mass anteriorly on the right. Remaining pancreas, spleen, adrenal glands, kidneys, and ureters appear unremarkable for noncontrast exam. Moderate scattered vascular calcifications. 4.8 cm infrarenal AAA. No free fluid/air. Osseous structures intact with moderate multilevel degenerative spondylosis. No ventral or inguinal hernias. Impression: 1. Porcelain gallbladder and fatty liver. 2. Suspect urinary bladder wall mass. Sonogram or cystoscopy may yield further information. 3. Scattered arteriosclerotic calcifications and infrarenal AAA. 4. Small hiatal hernia and colonic diverticulosis. 5. Cardiomegaly. Comment: Preliminary interpretation was made by [facility]. No critical discrepancy. CT DI 23.49
--- NOTE | 2018-04-28 08:58 | XRAY ---
Indication: Short of breath. Comparison: February 13, 2018. Portable apical lordotic chest less inflated again demonstrating cardiomegaly with left-sided AICD, focal eventration of the right hemidiaphragm, and bony degenerative changes. No new/acute cardiopulmonary abnormalities.
== END 2018-04-28 07:32 | disposition short-term general hospital (02) ==
LOC: ED 02:18
DX: N17.9 Acute kidney failure, unspecified (principal); I50.9 Heart failure, unspecified; I71.4 Abdominal aortic aneurysm, without rupture; R79.1 Abnormal coagulation profile; K82.8 Other specified diseases of gallbladder; Z79.899 Other long term (current) drug therapy; R33.9 Retention of urine, unspecified; K59.00 Constipation, unspecified; M54.5 Low back pain; I10 Essential (primary) hypertension
CPT/HCPCS: 36000; 36415; 71045; 74176; 80053; 81000; 82150; 83605; 83690; 83880; 84484; 85025; 85610; 87086; 93005; 96360; 96361; 96365; 96374; 96375; 99285; J2405